=== PATIENT | female | born 1950 | race Caucasian/White ===

== ENCOUNTER → 2017-02-12 | Outpatient (CLI) | payer MEDICARE, MEDICAID ==
[~2017-02-12] MED LIST: DRIS50002 PO; FERR325T3 PO; FOLI1TAB4 PO; IBUP60TA PO; JANU50TA8 PO; LIPI10TA PO; LORA10TA2 PO; MYRB25TA PO; RANI1TAB6 PO; VALS1TAB46 PO; ZONI100C2 PO; ZYRT10TA2 PO; vicodin OR; zyrtec OR
--- NOTE | 2017-02-12 15:04 | REPMRS ---
Patient History The patient states she had a clinical breast exam in Patient is postmenopausal. No known family history of cancer. Took hormonal contraceptives for 2 months. Took unspecified hormones for 10 years. Digital Woman Screen Mammo: February 12, 2017 - Exam #: [id number] Bilateral CC and MLO view(s) were taken. Technologist: Sarita Herr, Technologist Prior study comparison: August 22, 2015, digital woman screen mammo performed at [facility]. August 08, 2013, bilateral bilat screen digital mammo, performed at [facility] ([facility]). FINDINGS: There are scattered fibroglandular densities. There has been no change in the appearance of the mammogram from the prior studies. There is a mild amount of residual fibroglandular tissue which is fairly symmetric. There is no interval development of dominant mass, architectural distortion, or clustered microcalcification suggestive of malignancy. ASSESSMENT: BI-RADS/ACR category 1 mammogram. Negative. Recommendation Routine screening mammogram in 1 year (for women over age 40). This mammogram was interpreted with the aid of an FDA-approved computer-aided dectection system. Electronically Signed By: rOtiz Barron MD 02/12/17 [id number]
== END ==
LOC: M WHC 14:05
PROVIDERS: ATTEND Obstetrics & Gynecology
DX: Z12.31 Encounter for screening mammogram for malignant neoplasm of breast (principal)

== ENCOUNTER 2018-04-07 07:43 | Emergency (ER) | payer MEDICARE, MEDICAID ==
[2018-04-07 08:18] LABS: BASO % 0.3 % (0.0-1.0); EOS # 0.1 10^3/uL (0.0-0.50); EOS % 0.8 % (0.0-3.0); HEMATOCRIT 36.9 % (36.0-47.0); HEMOGLOBIN 11.5 g/dl (12.0-15.5); IMMATURE GRANULOCYTE % 0.6 % (0-3.0); LYMPH # 1.1 10^3/uL (1.5-4.5); LYMPH % 8.7 % (24.0-44.0); MEAN CORPUSCULAR HEMOGLOBIN 31.3 pg (27.0-33.0); MEAN CORPUSCULAR HGB CONC 31.2 g/dl (32.0-36.5); MEAN CORPUSCULAR VOLUME 100.5 fl (80.0-96.0); MONO # 0.5 10^3/uL (0.0-0.8); MONO % 3.7 % (0.0-5.0); NEUTROPHILS # 10.7 10^3/uL (1.8-7.7); NEUTROPHILS % 85.9 % (36.0-66.0); PLATELET COUNT, AUTOMATED 416 10^3/uL (150-450); RED BLOOD COUNT 3.67 10^6/uL (4.00-5.40); RED CELL DISTRIBUTION WIDTH 13.9 % (11.5-14.5); WHITE BLOOD COUNT 12.5 10^3/uL (4.0-10.0)
[2018-04-07 08:37] LABS: INR 0.86; PROTHROMBIN TIME 11.8 SECONDS (12.1-14.4)
[2018-04-07 08:38] LABS: ALBUMIN 3.7 GM/DL (3.2-5.2); ALBUMIN/GLOBULIN RATIO 0.97 (1.00-1.93); ALKALINE PHOSPHATASE 104 U/L (45-117); ALT/SGPT 22 U/L (12-78); ANION GAP 9 MEQ/L (8-16); AST/SGOT 21 U/L (7-37); BILIRUBIN,DIRECT 0.1 MG/DL (0.0-0.2); BILIRUBIN,TOTAL 0.3 MG/DL (0.2-1.0); BLOOD UREA NITROGEN 27 MG/DL (7-18); CALCIUM LEVEL 9.4 MG/DL (8.8-10.2); CARBON DIOXIDE LEVEL 24 MEQ/L (21-32); CHLORIDE LEVEL 106 MEQ/L (98-107); CPK CREATINE PHOSPHOKINASE 61 U/L (26-192); CREATININE FOR GFR 1.19 MG/DL (0.55-1.30); FREE T4 1.19 NG/DL (0.76-1.46); GLOMERULAR FILTRATION RATE 47.9 (>45); GLUCOSE, FASTING 246 MG/DL (70-100); LIPASE 183 U/L (73-393); PARTIAL THROMBOPLASTIN TIME 25.8 SECONDS (25.4-37.6); SODIUM LEVEL 139 MEQ/L (136-145); TOTAL PROTEIN 7.5 GM/DL (6.4-8.2); TROPONIN I < 0.02 NG/ML (< 0.10)
[2018-04-07] MEDS: ONDANSETRON 4MG/2ML VIAL (J2405) IV (08:39)
[2018-04-07] MEDS: NITROGLYCERIN 0.4 MG SUBL TABLET SL ×3 (09:02→09:17)
[2018-04-07] MEDS: ASPIRIN 81 MG CHEW TABLET PO (09:04)
[2018-04-07] MEDS ORDERED: ISOVUE-370 76% 100ML VIAL (Q9967) As Ordered (09:48)
[2018-04-07] MEDS: PANTOPRAZOLE 40MG INJ (PROTONIX) (C9113) IV (10:10)
[2018-04-07] MEDS: GI COCKTAIL 50ML BTL(HYOSCYAMINE/MAALOX/LIDOCAINE VISCOUS)(1:3:1) PO (10:10)
[2018-04-07] MEDS: MORPHINE 4 MG/ML 1ML VIAL/SYRINGE (J2270) IV (13:52)
[2018-04-07 14:58] LABS: CK-MB VALUE MASS < 1.0 NG/ML (<3.6); CPK CREATINE PHOSPHOKINASE 54 U/L (26-192); MB/CK RELATIVE INDEX 1.85 (< OR =4); TROPONIN I < 0.02 NG/ML (< 0.10)
== END 2018-04-07 16:09 | disposition home or self-care (01) ==
LOC: M ED 07:43
DX: R07.9 Chest pain, unspecified (principal); R10.9 Unspecified abdominal pain; R19.09 Other intra-abdominal and pelvic swelling, mass and lump; R06.02 Shortness of breath; E11.9 Type 2 diabetes mellitus without complications; I10 Essential (primary) hypertension; M19.90 Unspecified osteoarthritis, unspecified site; I20.9 Angina pectoris, unspecified; Z79.899 Other long term (current) drug therapy; Z79.84 Long term (current) use of oral hypoglycemic drugs; Z88.2 Allergy status to sulfonamides
CPT/HCPCS: C9113

== ENCOUNTER → 2018-05-24 | Outpatient (CLI) | payer MEDICARE, MEDICAID ==
[~2018-05-24] MED LIST changes: -DRIS50002 PO; +DRIS50003 PO; +FOLI1TAB11 PO; -FOLI1TAB4 PO; +LIDOCAINE 1% MDV 20ML VIAL As Ordered ONE; -LORA10TA2 PO; +LORA10TA3 PO; +PERC5TAB12 PO; +ZYRT10CA5 PO; -ZYRT10TA2 PO
--- NOTE | 2018-05-24 16:10 | REP ---
CT-GUIDED PELVIC MASS BIOPSY The procedure was performed under the direct supervision of Dr. Chavez. The patient has a history of several pelvic masses with a dominant mass in the upper pelvis measuring 10 cm seen on a previous CT scan dated 04/07/2018. The risks and benefits of the procedure were explained to the patient and informed consent was obtained. The mass in the upper pelvis was localized using CT guidance. The skin was prepped and draped in a sterile fashion. 1% lidocaine was used as a local anesthetic. Using CT guidance a 19/20 gauge coaxial needle biopsy system was inserted and advanced into the mass. Six core biopsy samples were obtained and sent to lab. The patient tolerated the procedure well and there were no immediate complications. After the appropriate amount of monitored convalescence the patient was discharged from the department. Reviewed by RADHA Yadav 05/24/2018 03:55 P Electronically Signed by Ramy Chavez MD 05/24/2018 04:01 P
== END ==
LOC: M RADPRO 08:14
PROVIDERS: ATTEND Surgery
DX: D21.4 Benign neoplasm of connective and other soft tissue of abdomen (principal); Z79.899 Other long term (current) drug therapy; Z88.2 Allergy status to sulfonamides

== ENCOUNTER → 2019-03-30 | Outpatient (CLI) | payer MEDICARE, MEDICAID ==
[~2019-03-30] MED LIST changes: +GASTROGRAFIN SOLUTION 30ML (Q9963) As Ordered ONE; +IBUP600T42 PO; -IBUP60TA PO; +ISOVUE-370 76% 100ML VIAL (Q9967) As Ordered ONE; -LIDOCAINE 1% MDV 20ML VIAL As Ordered ONE; +RANI-356 PO; -RANI1TAB6 PO; -VALS1TAB46 PO; +VALS1TAB66 PO
--- NOTE | 2019-03-30 16:01 | REP ---
Clinical: History of malignancy. Comparison: 04/07/2018 Technique: Axial contrast enhanced images of the abdomen and pelvis using oral (per protocol) and 100 ml Isovue 370 intravenous contrast material with images obtained in the portal venous phase and delayed phase of enhancement. Precontrast and arterial phase images obtained of the abdomen along with coronal and sagittal re-formations. Findings: Liver, spleen, pancreas, gallbladder, and bilateral adrenal glands appear normal. Kidneys demonstrate age-related cortical thinning and increased central sinus fat along with bilateral simple cortical and predominantly peripelvic cysts. No perinephric stranding, suspicious renal lesion, or nephrolithiasis appreciated. The enteric system is without obstruction or acute inflammatory process. Normal terminal ileum and appendix identified in the right lower quadrant. Colonic and sigmoid diverticulosis noted without acute diverticulitis. There is a complex enhancing multilobulated mass within the pelvis superior to the bladder which measures approximately 6.5 x 4.2 x 4.4 cm and is increased in size when compared to prior examination. There is a second heterogeneous enhancing mass lesion in the deep left sarahi pelvis which measures approximately 6.6 x 5.4 x 5.8 cm and has considerably increased in size. There is a third lesion more superior within the pelvis which measures approximately 5.8 x 2.5 x 4.9 cm and has considerably decreased in size from prior examination. Further evaluation of the pelvis demonstrates relatively normal appearance to the bladder and evidence for prior hysterectomy. No ascites. No intraperitoneal or retroperitoneal adenopathy. No free air. Abdominal aorta and vasculature appear normal. Musculoskeletal structures are intact. Lung bases are clear. Impression: 1. Three enhancing mass lesions within the pelvis as described above two of which have increased in size while the previously noted largest lesion is somewhat decreased in size. 2. Diverticulosis without acute diverticulitis. 3. Stable simple renal cysts. Electronically Signed by Zeferino Ruiz MD 03/30/2019 03:52 P
== END ==
LOC: M RAD 13:03
PROVIDERS: ATTEND Obstetrics & Gynecology
DX: D48.4 Neoplasm of uncertain behavior of peritoneum (principal); K57.91 Diverticulosis of intestine, part unspecified, without perforation or abscess with bleeding; N28.1 Cyst of kidney, acquired
CPT/HCPCS: 74178; Q9963; Q9967

== ENCOUNTER → 2020-06-14 | Outpatient (CLI) | payer MEDICARE, MEDICAID ==
[~2020-06-14] MED LIST changes: +ACET-683 PO; +CENT1TAB PO; +CURCPOW PO; -GASTROGRAFIN SOLUTION 30ML (Q9963) As Ordered ONE; -ISOVUE-370 76% 100ML VIAL (Q9967) As Ordered ONE; +LETR2.5T2 PO; +MEDR10TA; +METO1TAB7; +MONT10TA10; -RANI-356 PO; +RANI-397 PO; +VITA50005; +ZONI100C17 PO; -ZONI100C2 PO; +ZYRTTAB8 PO
== END ==
LOC: M LABSMTC 10:58
PROVIDERS: ATTEND Anesthesiology
DX: Z01.812 Encounter for preprocedural laboratory examination (principal); Z20.822 Contact with and (suspected) exposure to COVID-19

== ENCOUNTER 2020-06-19 11:37 | Day surgery (SDC) | payer MEDICARE, MEDICAID ==
[~2020-06-19] VITALS: Ht 167.6 cm; Wt 111.6 kg
[~2020-06-19 11:37] MED LIST changes: +LIDOCAINE 1% MDV 20ML VIAL SQ PRN; +LR 1,000 ML IV ONE; +ceFAZolin SOD 1 GM in D5W MINI-BAG PLUS 50 ML IV ONE
--- OUTSIDE RECORDS SUMMARY | 2020-06-19 11:40 | CCD | Continuity of Care Document ---
Author Author Isela EUBANKSCTerrie Organization Unknown Address [address] [place] [address] Phone [phone] Care Team Providers Care Brim Raiser Name Role Phone Pat Richter MD AUTM Unavailable Bernarda Montalvo M.D. AUTM Jose Alejandro Harry M.D. AUTM [phone] CHRISSY ROA AUTM Social History Type Date Description Comments Sex Unknown Medications Active Medications SIG Qnty Indications Ordering Provide r Date Gabapentin 300mg Capsules Zeferino Urias MD Furosemide 20mg Tablets TK 1 T PO D Unknown Losartan Potassium 50mg Tablets TK 1 T PO D Unknown Fluticasone Propionate 50mcg/Act Suspension Use 2 Hundred In Each Nostril D Unknown Famotidine 20mg Tablets TK 1 T PO Twice A Day Unknown Letrozole 2.5mg Tablets Zeferino Urias MD Medroxyprogesterone Acetate 10mg T ablets Take 2 Tablets By Mouth Daily Unknown Vitamin D (Ergocalciferol) 1.25mg (45191 Ut) Capsules Take 1 Capsule By Mouth 1 Time A Week With Food Unknown Omeprazole 20mg Capsules DR Take 1 Capsule By Mouth Every Day Unknown Montelukast Sodium 10mg Tablets Take 1 Tablet By Mouth Every Day Unknown Folic Acid 1mg Tablets Take 1 Tablet By Mouth Every Day Unknown Ferrous Sulfate 324(65Fe) mg Table ts DR Take 1 Tablet By Mouth Every Day Unknown Cetirizine HCL 10mg Tablets Take 1 Tablet By Mouth Once Daily Unknown Atorvastatin Calcium 40mg Tablets Take 1 Tablet By Mouth AT Bedtime Unknown Janumet XR 50-1000mg Tablets ER 24 HR Take 1 Tablet By Mouth Twice Daily Unknown Glimepiride 2mg Tablets Take 1 Tablet By Mouth Every Day Unknown Ketoconazole 2% Cream Apply Externally To Both Feet Twice Daily Unknown Zonisamide 100mg Capsules Take 1 Capsule By Mouth Every Morning And 2 Capsules Every Evening Unknown Metoprolol Succinate ER 50mg Tablets ER 24HR Take 1 Tablet By Mouth Every Day Unknown Myrbetriq 25mg Tablets ER 24HR Pat Richter MD Immunizations CPT Code Status Date Vaccine Lot # [id number] Given 03/06/2010 Flu Injection [id number] Given 01/21/2010 Pneumococcal Vac ([id number]) Vital Signs Date Vital Result Comment 06/13/2020 1:59pm Height 66 inches 5'6" Weight 246.00 lb BMI (Body Mass Index) 39.7 kg/m2 Body Temperature 97.9 F BP Systolic 164 mmHg BP Diastolic 85 mmHg Heart Rate 81 /min O2 % BldC Oximetry 99 % Encounters Type Date Location Provider Dx Diagnosis Office Visit 04/18/2020 9:00a [facility] RUDY Medina I10 Essential (primary) hyperten glory E11.9 Type 2 diabetes mellitus wit hout complications E78.5 Hyperlipidemia, unspecified Assessments Date Code Description Provider 04/18/2020 I10 Essential (primary) hypertension RUDY Sampson 04/18/2020 E11.9 Type 2 diabetes mellitus without complications RUDY Sampson 04/18/2020 E78.5 Hyperlipidemia, unspecified RUDY Jasmine 01/18/2020 I10 Essential (primary) hypertension RUDY Sampson 01/18/2020 E11.9 Type 2 diabetes mellitus without complications RUDY Sampson 01/18/2020 E78.5 Hyperlipidemia, unspecified RUDY Jasmine Plan of Treatment Future Appointment(s):* 06/15/2020 8:45 am - [facility] at [facility] * 07/17/2020 10:30 am - RUDY Sampson at [facility] Referrals Refer to Reason for Referral Status Appt Date [facility] Private Duty Rn PATIENT WITH UMBILIC AL HERNIA. PLEASE EVAL AND TREAT Sent 05/09/[address] [place] [address] [phone]
--- OUTSIDE RECORDS SUMMARY | 2020-06-19 11:40 | CCD | Continuity of Care Document ---
Author Author Isela MILLS MD Organization Unknown Address [address] [facility] [address] [place] [address] Phone [phone] Care Team Providers Care Clean Rice Grader And Reel Tender Name Role Phone Pat Richter M.D. AUTM [phone] Jose Alejandro Harry M.D. AUTM [phone] Problems Description No Information Available Social History Type Date Description Comments Sex Unknown ETOH Use Denies alcohol use Recreational Drug Use Denies Drug Use Tobacco Use Start: Unknown Denies Smoking Allergies, Adverse Reactions, Alerts Active Allergies Reaction Severity Comments Date Sulfa Hives 05/05/2018 Magnesium Oxide Hives 05/09/2020 Nateglinide Hives 05/09/2020 Diltiazem Hives 05/09/2020 Medications Active Medications SIG Qnty Indications Ordering Provide r Date Medroxyprogesterone Acetate 10mg T ablets Take 2 Tablets By Mouth Daily Unknown Letrozole 2.5mg Tablets take 2 tab by mouth daily Unknown Metoprolol Tartrate 25mg Tablets 1 bid Unknown Nexium 40mg Capsules DR 1 by mouth every day Unknown Glimepiride 1mg Tablets 1 qd Unknown Ketoconazole 2% Cream bid To Feet Unknown Myrbetriq 25mg Tablets ER 24HR 1 tab by mouth every day Unknown Tylenol 325mg Tablets 2 by mouth every 4 hours as needed Unknown Multivitamin Adult Tablets 1 by mouth every day Unknown Hydrochlorothiazide 12.5mg Tablets 1 by mouth every day Unknown Vitamin B12 1000mcg Tablets ER 1 by mouth every day Unknown Vitamin D (Ergocalciferol) 70437Sphr Capsules 1 Q Week Unknown Atorvastatin Calcium 10mg Tablets 1 by mouth every night at bedtime Unknown Montelukast Sodium 10mg Tablets 1 by mouth every day Unknown Folic Acid 1mg Tablets 1 by mouth every day Unknown Loratadine 10mg Capsules 1 by mouth every day Unknown Ranitidine HCL 150mg Capsules 1 by mouth twice a day Unknown Zonisamide 100mg Capsules 1 qam And 2 QHS Unknown Janumet 50-1000mg Tablets 1 b id Unknown Ferrous Sulfate 325(65Fe) mg Table ts 1 by mouth every day Unknown Immunizations Description No Information Available Vital Signs Date Vital Result Comment 05/09/2020 10:29am BP Systolic 144 mmHg BP Diastolic 76 mmHg Height 67 inches 5'7" Weight 246.38 lb BMI (Body Mass Index) 38.6 kg/m2 [place] Body Weight 135 lb Weight 111.756 kg BSA (Body Surface Area) 2.21 m2 05/31/2018 10:16am BP Systolic 156 mmHg BP Diastolic 85 mmHg Height 67 inches 5'7" Weight 275.50 lb BMI (Body Mass Index) 43.1 kg/m2 [place] Body Weight 135 lb Weight 124.967 kg BSA (Body Surface Area) 2.32 m2 Results Description No Information Available Procedures Description No Information Available Medical Devices Description No Information Available Encounters Description No Information Available Assessments Description No Information Available Plan of Treatment 05/31/2018 - Alberto Mills JR, MD* R93.3 Abnormal findings on diagnostic imaging of other parts of di* Comments:* At this point there is some abnormality in the pelvis and my concern still is that this is some sort of low-grade sarcoma or a leiomyoma however there is several of these lesions in the pelvis and this would suggest much more of a malignant etiology then a benign etiology. Fortunately there are no significant lymph nodes appreciated no other evident disease appreciated. The patient has a history of pelvic masses and resection and thus it probably is the same etiology of what it was previously and would benefit from referral onto either MEASUREMENT ANALYST oncology or [facility] at this point she does not want travel outside the area but I have convinced her that it is reasonable to see the MEASUREMENT ANALYST oncologist in [place]. At this point she is having some discomfort and pain I will order some pain medication for her until she is seen fortunately she is not completely obstructed is not having any peritoneal signs per se and I do not feel that she needs emergent operative intervention but given her discomfort and pressure and pain I do feel that she will need more urgent care and evaluation. Functional Status Description No Information Available Mental Status Description No Information Available Referrals Description No Information Available
--- OUTSIDE RECORDS SUMMARY | 2020-06-19 11:40 | CCD | Continuity of Care Document ---
Author Author Isela EUBANKSCTerrie Organization Unknown Address [address] [place] [address] Phone [phone] Care Team Providers Care Skylights Assembler Name Role Phone Pat Richter MD AUTM Unavailable Bernarda Montalvo M.D. AUTM Jose Alejandro Harry M.D. AUTM [phone] CHRISSY ROA AUTM [phone] Social History Type Date Description Comments Sex Unknown Medications Active Medications SIG Qnty Indications Ordering Provide r Date Gabapentin 300mg Capsules Zeferino Urias MD Furosemide 20mg Tablets TK 1 T PO D Unknown Losartan Potassium 50mg Tablets TK 1 T PO D Unknown Fluticasone Propionate 50mcg/Act Suspension Use 2 Humphrey In Each Nostril D Unknown Famotidine 20mg Tablets TK 1 T PO Twice A Day Unknown Letrozole 2.5mg Tablets Zeferino Urias MD Medroxyprogesterone Acetate 10mg T ablets Take 2 Tablets By Mouth Daily Unknown Vitamin D (Ergocalciferol) 1.25mg (63749 Ut) Capsules Take 1 Capsule By Mouth [...] CPT Code Status Date Vaccine Lot # [id number] Given 03/06/2010 Flu Injection 61820 Given 01/21/2010 Pneumococcal Vac (J6065) Vital Signs Date Vital Result Comment 06/13/2020 1:59pm Height 66 inches 5'6" Weight 246.00 lb BMI (Body Mass Index) 39.7 kg/m2 Body Temperature 97.9 F BP Systolic 164 mmHg BP Diastolic 85 mmHg Heart Rate 81 /min O2 % BldC Oximetry 99 % Procedures Date Code Description Status 06/13/2020 40149 Echocardiogram, Complete Complet ed 06/13/2020 98948 EKG Completed Encounters Type Date Location Provider Dx Diagnosis Office Visit 06/13/2020 1:45p [facility] I11.9 Hypertensive heart disease without heart failure E11.9 Type 2 diabetes mellitus wit hout complications I34.0 Nonrheumatic mitral (valve) insufficiency I49.49 Other premature depolarizati on Office Visit 04/18/2020 9:00a [facility] RUDY Medina I10 Essential (primary) hyperten glory E11.9 Type 2 diabetes mellitus wit hout complications E78.5 Hyperlipidemia, unspecified Assessments Date Code Description Provider 06/13/2020 I11.9 Hypertensive heart disease witho ut heart failure [facility] 06/13/2020 E11.9 Type 2 diabetes mellitus without complications [facility] 06/13/2020 I34.0 Nonrheumatic mitral (valve) insu fficiency [facility] 06/13/2020 I49.49 Other premature depolarization M tabitha Harry [facility] 04/18/2020 I10 Essential (primary) hypertension RUDY Sampson 04/18/2020 E11.9 Type 2 diabetes mellitus without complications RUDY Sampson 04/18/2020 E78.5 Hyperlipidemia, unspecified RUDY Jasmine 01/18/2020 I10 Essential (primary) hypertension RUDY Sampson 01/18/2020 E11.9 Type 2 diabetes mellitus without complications RUDY Sampson 01/18/2020 E78.5 Hyperlipidemia, unspecified RUDY Jasmine Plan of Treatment Future Appointment(s):* 06/15/2020 8:45 am - [facility] at [facility] * 07/17/2020 10:30 am - RUDY Sampson at [facility] Referrals Refer to Dr Conway for Referral Status Appt Date [facility] Pay Station Collector PATIENT WITH UMBILIC AL HERNIA. PLEASE EVAL AND TREAT Sent 05/09/[address] [phone]
--- OUTSIDE RECORDS SUMMARY | 2020-06-19 11:41 | CCD | Continuity of Care Document ---
Author Author Isela ROA Organization Unknown Address [address] [facility] [address] [place] [address] Phone [phone] Care Team Providers Care Director Of Development And Marketing Name Role Phone Pat Richter MD AUTM Unavailable Bernarda Montalvo M.D. AUTM Jose Alejandro Harry M.D. AUTM [phone] CHRISSY ROA AUTM Social History Type Date Description Comments Sex Unknown Immunizations CPT Code Status Date Vaccine Lot # [id number] Given 03/06/2010 Flu Injection 50228 Given 01/21/2010 Pneumococcal Vac (J6065) Encounters Type Date Location Provider Dx Diagnosis Office Visit 04/18/2020 9:00a [facility] RUDY Medina I10 Essential (primary) [...] RUDY Jasmine Plan of Treatment Future Appointment(s):* 07/17/2020 10:30 am - RUDY Sampson at [facility] Referrals Refer to Reason for Referral Status Appt Date [facility] 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 PLEASE EVAL AND TREAT Sent [address] [phone]
--- OUTSIDE RECORDS SUMMARY | 2020-06-19 11:41 | CCD ---
Author Author [facility] Organization [facility] Address Unknown Phone Unavailable Care Team Providers Care Customer Service Sales Associate Name Role Phone Albert BROWN MD Unavailable Unavailable BROWN, L MARU TURNER Unavailable Unavailable BROWN, L MARU TURNER Unavailable Unavailable BROWN, L MARU TURNER Unavailable Unavailable BROWN, L MARU TURNER Unavailable Unavailable BROWN, L MARU TURNER Unavailable Unavailable BROWN, L MARU TURNER Unavailable Unavailable BROWN, L MARU TURNER Unavailable Unavailable BROWN, L MARU TURNER Unavailable Unavailable BROWN, L MARU TURNER Unavailable Unavailable BROWN, L MARU TURNER Unavailable Unavailable BROWN, L MARU TURNER Unavailable Unavailable BROWN, L MARU TURNER Unavailable Unavailable BROWN, L MARU TURNER Unavailable Unavailable BROWN, L MARU TURNER Unavailable Unavailable BROWN, L MARU TURNER Unavailable Unavailable BROWN, L MARU TURNER Unavailable Unavailable BROWN, L MARU TURNER Unavailable Unavailable BROWN, L MARU TURNER Unavailable Unavailable BROWN, L MARU TURNER Unavailable Unavailable BROWN, L MARU TURNER Unavailable Unavailable BROWN, L MARU TURNER Unavailable Unavailable BROWN, L MARU TURNER Unavailable Unavailable BROWN, L MARU TURNER Unavailable Unavailable BROWN, L MARU TURNER Unavailable Unavailable BROWN, L MARU TURNER Unavailable Unavailable BROWN, L MRAU TURNER Unavailable Unavailable BROWN, L MARU TURNER Unavailable Unavailable BROWN, L MARU TURNER Unavailable Unavailable BROWN, L MARU TURNER Unavailable Unavailable BROWN, L MARU TURNER Unavailable Unavailable BROWN, L MARU TURNER Unavailable Unavailable BROWN, L MARU TURNER Unavailable Unavailable BROWN, L MARU TURNER Unavailable Unavailable BROWN, L MARU MD Unavailable Unavailable Albert BROWN MD Unavailable Unavailable Albert BROWN MD Unavailable Unavailable Albert BROWN MD Unavailable Unavailable Albert BROWN MD Unavailable Unavailable Albert BROWN MD Unavailable Unavailable Albert BROWN MD Unavailable Unavailable Albert BROWN MD Unavailable Unavailable Albert BROWN MD Unavailable Unavailable WILLIAM, MAQBOOL DANA MD Unavailable Unavailable WILLIAM, MAQBOOL DANA MD Unavailable Unavailable WILLIAM, MAQBOOL DANA MD Unavailable Unavailable WILLIAM, MAQBOOL DANA MD Unavailable Unavailable WILLIAM, MAQBOOL DANA MD Unavailable Unavailable WILLIAM, MAQBOOL DANA MD Unavailable Unavailable WILLIAM, MAQBOOL DANA MD Unavailable Unavailable WILLIAM, MAQBOOL DANA MD Unavailable Unavailable WILLIAM, MAQBOOL DANA MD Unavailable Unavailable WILLIAM, MAQBOOL DANA MD Unavailable Unavailable WILLIAM, MAQBOOL DANA MD Unavailable Unavailable WILLIAM, MAQBOOL DANA MD Unavailable Unavailable WILLIAM, MAQBOOL DANA MD Unavailable Unavailable WILLIAM, MAQBOOL DANA MD Unavailable Unavailable WILLIAM, MAQBOOL DANA MD Unavailable Unavailable WILLIAM, MAQBOOL DANA MD Unavailable Unavailable WILLIAM, MAQBOOL DANA MD Unavailable Unavailable WILLIAM, MAQBOOL DANA MD Unavailable Unavailable WILLIAM, MAQBOOL DANA MD Unavailable Unavailable WILLIAM, MAQBOOL DANA MD Unavailable Unavailable WILLIAM, MAQBOOL DANA MD Unavailable Unavailable WILLIAM, MAQBOOL DANA MD Unavailable Unavailable WILLIAM, MAQBOOL DANA MD Unavailable Unavailable WILLIAM, MAQBOOL DANA MD Unavailable Unavailable WILLIAM, MAQBOOL DANA MD Unavailable Unavailable WILLIAM, MAQBOOL DANA MD Unavailable Unavailable WILLIAM, MAQBOOL DANA MD Unavailable Unavailable WILLIAM, MAQBOOL DANA MD Unavailable Unavailable WILLIAM, MAQBOOL DANA MD Unavailable Unavailable WILLIAM, MAQBOOL DANA MD Unavailable Unavailable WILLIAM, MAQBOOL DANA MD Unavailable Unavailable WILLIAM, MAQBOOL DANA MD Unavailable Unavailable WILLIAM, MAQBOOL DANA MD Unavailable Unavailable WILLIAM, MAQBOOL DANA MD Unavailable Unavailable WILLIAM, MAQBOOL DANA MD Unavailable Unavailable WILLIAM, MAQBOOL DANA MD Unavailable Unavailable WILLIAM, MAQBOOL DANA MD Unavailable Unavailable WILLIAM, MAQBOOL DANA MD Unavailable Unavailable WILLIAM, MAQBOOL DANA MD Unavailable Unavailable WILLIAM, MAQBOOL DANA MD Unavailable Unavailable WILLIAM, MAQBOOL DANA MD Unavailable Unavailable WILLIAM, MAQBOOL DANA MD Unavailable Unavailable WILLIAM, MAQBOOL DANA MD Unavailable Unavailable WILLIAM, MAQBOOL DANA MD Unavailable Unavailable WILLIAM, MAQBOOL DANA MD Unavailable Unavailable WILLIAM, MAQBOOL DANA MD Unavailable Unavailable WILLIAM, MAQBOOL DANA MD Unavailable Unavailable WILLIAM, MAQBOOL DANA MD Unavailable Unavailable WILLIAM, MAQBOOL DANA MD Unavailable Unavailable WILLIAM, MAQBOOL DANA MD Unavailable Unavailable WILLIAM, MAQBOOL DANA MD Unavailable Unavailable WILLIAM, MAQBOOL DANA MD Unavailable Unavailable WILLIAM, MAQBOOL DANA MD Unavailable Unavailable WILLIAM, MAQBOOL DANA MD Unavailable Unavailable WILLIAM, MAQBOOL DANA MD Unavailable Unavailable WILLIAM, MAQBOOL DANA MD Unavailable Unavailable WILLIAM, MAQBOOL DANA MD Unavailable Unavailable WILLIAM, MAQBOOL DANA MD Unavailable Unavailable WILLIAM, MAQBOOL DANA MD Unavailable Unavailable WILLIAM, MAQBOOL DANA MD Unavailable Unavailable WILLIAM, MAQBOOL DANA MD Unavailable Unavailable WILLIAM, MAQBOOL DANA MD Unavailable Unavailable WILLIAM, MAQBOOL DANA MD Unavailable Unavailable WILLIAM, MAQBOOL DANA MD Unavailable Unavailable WILLIAM, MAQBOOL DANA MD Unavailable Unavailable WILLIAM, MAQBOOL DANA MD Unavailable Unavailable WILLIAM, MAQBOOL DANA MD Unavailable Unavailable WILLIAM, MAQBOOL DANA MD Unavailable Unavailable WILLIAM, MAQBOOL DANA MD Unavailable Unavailable WILLIAM, MAQBOOL DANA MD Unavailable Unavailable WILLIAM, MAQBOOL DANA MD Unavailable Unavailable PRINCE HARRY MD Unavailable Unavailable PRINCE HARRY MD Unavailable Unavailable PRINCE HARRY MD Unavailable Unavailable MATTIShreya PHIPPS MD Unavailable Unavailable MATTIShreya PHIPPS MD Unavailable Unavailable Shreya CHINO MD Unavailable Unavailable Shreya CHINO MD Unavailable Unavailable Shreya CHINO MD Unavailable Unavailable Shreya CHINO MD Unavailable Unavailable Shreya CHINO MD Unavailable Unavailable Shreya CHINO MD Unavailable Unavailable MATTIShreya PHIPPS MD Unavailable Unavailable MATTIShreya PHIPPS MD Unavailable Unavailable Shreya CHINO MD Unavailable Unavailable Shreya CHINO MD Unavailable Unavailable MATTIShreya PHIPPS MD Unavailable Unavailable Shreya CHINO MD Unavailable Unavailable Shreya CHINO MD Unavailable Unavailable Shreya CHINO MD Unavailable Unavailable Shreya CHINO MD Unavailable Unavailable Shreya CHINO MD Unavailable Unavailable Shreya CHINO MD Unavailable Unavailable Shreya CHINO MD Unavailable Unavailable Shreya CHINO MD Unavailable Unavailable Shreya CHINO MD Unavailable Unavailable Shreya CHINO MD Unavailable Unavailable Shreya CHINO MD Unavailable Unavailable Shreya CHINO MD Unavailable Unavailable Shreya CHINO MD Unavailable Unavailable Shreya CHINO MD Unavailable Unavailable Shreya CHINO MD Unavailable Unavailable Shreya CHINO MD Unavailable Unavailable Shreya CHINO MD Unavailable Unavailable Shreya CHINO MD Unavailable Unavailable Shreya CHINO MD Unavailable Unavailable Shreya CHINO MD Unavailable Unavailable Shreya CHINO MD Unavailable Unavailable Shreya CHINO MD Unavailable Unavailable Shreya CHINO MD Unavailable Unavailable Shreya CHINO MD Unavailable Unavailable Shreya CHINO MD Unavailable Unavailable Shreya CHINO MD Unavailable Unavailable Shreya CHINO MD Unavailable Unavailable Shreya CHINO MD Unavailable Unavailable Shreya CHINO MD Unavailable Unavailable Shreya CHINO MD Unavailable Unavailable Shreya CHINO MD Unavailable Unavailable Shreya CHINO MD Unavailable Unavailable Shreya CHINO MD Unavailable Unavailable Shreya CHINO MD Unavailable Unavailable Shreya CHINO MD Unavailable Unavailable Shreya CHINO MD Unavailable Unavailable Shreya CHINO MD Unavailable Unavailable Shreya CHINO MD Unavailable Unavailable Shreya CHINO MD Unavailable Unavailable Shreya CHINO MD Unavailable Unavailable Shreya CHINO MD Unavailable Unavailable Shreya CHINO MD Unavailable Unavailable Shreya CHINO MD Unavailable Unavailable Shreya CHINO MD Unavailable Unavailable Shreya CHINO MD Unavailable Unavailable Shreya CHINO MD Unavailable Unavailable Shreya CHINO MD Unavailable Unavailable Shreya CHINO MD Unavailable Unavailable Shreya CHINO MD Unavailable Unavailable Shreya CHINO MD Unavailable Unavailable Shreya CHINO MD Unavailable Unavailable Shreya CHINO MD Unavailable Unavailable Shreya CHINO MD Unavailable Unavailable Shreya CHINO MD Unavailable Unavailable Shreya CHINO MD Unavailable Unavailable Shreya CHINO MD Unavailable Unavailable MATTIShreya PHIPPS MD Unavailable Unavailable MATTIShreya PHIPPS MD Unavailable Unavailable MATTIShreya PHIPPS MD Unavailable Unavailable MATTIShreya PHIPPS MD Unavailable Unavailable Shreya CHINO MD Unavailable Unavailable Shreya CHINO MD Unavailable Unavailable Shreya CHINO MD Unavailable Unavailable Shreya CHINO MD Unavailable Unavailable Shreya CHINO MD Unavailable Unavailable MATTIShreya PHIPPS MD Unavailable Unavailable Shreya CHINO MD Unavailable Unavailable Shreya CHINO MD Unavailable Unavailable Shreya CHINO MD Unavailable Unavailable Shreya CHINO MD Unavailable Unavailable Shreya CHION MD Unavailable Unavailable Shreya CHINO MD Unavailable Unavailable Shreya CHINO MD Unavailable Unavailable Shreya CHINO MD Unavailable Unavailable Shreya CHINO MD Unavailable Unavailable Shreya CHINO MD Unavailable Unavailable Shreya CHINO MD Unavailable Unavailable Shreya CHINO MD Unavailable Unavailable Shreya CHINO MD Unavailable Unavailable Shreya CHINO MD Unavailable Unavailable Shreya CHINO MD Unavailable Unavailable Shreya CHINO MD Unavailable Unavailable Shreya CHINO MD Unavailable Unavailable Shreya CHINO MD Unavailable Unavailable Shreya CHINO MD Unavailable Unavailable Shreya CHINO MD Unavailable Unavailable Shreya CHINO MD Unavailable Unavailable Shreya CHINO MD Unavailable Unavailable Shreya CHINO MD Unavailable Unavailable Shreya CHINO MD Unavailable Unavailable Shreya CHINO MD Unavailable Unavailable Shreya CHINO MD Unavailable Unavailable Shreya CHINO MD Unavailable Unavailable Shreya CHINO MD Unavailable Unavailable Shreya CHINO MD Unavailable Unavailable Shreya CHINO MD Unavailable Unavailable Shreya CHINO MD Unavailable Unavailable Shreya CHINO MD Unavailable Unavailable Shreya CHINO MD Unavailable Unavailable TONTARSKI, G CHRISSY PA Unavailable Unavailable TONTARSKI, G CHRISSY PA Unavailable Unavailable TONTARSKI, G CHRISSY PA Unavailable Unavailable TONTARSKI, G CHRISSY PA Unavailable Unavailable TONTARSKI, G CHRISSY PA Unavailable Unavailable TONTARSMAIRA, G CHRISSY PA Unavailable Unavailable TONTARSMAIRA, G CHRISSY PA Unavailable Unavailable TONTARSMAIRA, G CHRISSY PA Unavailable Unavailable TONTARSMAIRA, G CHRISSY PA Unavailable Unavailable TONTARSMAIRA, G CHRISSY PA Unavailable Unavailable TONTARSMAIRA, G CHRISSY PA Unavailable Unavailable TONTARSMAIRA, G CHRISSY PA Unavailable Unavailable TONTARSMAIRA, G CHRISSY PA Unavailable Unavailable TONTARSMAIRA, G CHRISSY PA Unavailable Unavailable TONTARSMAIRA, G CHRISSY PA Unavailable Unavailable TONTARSMAIRA, G CHRISSY PA Unavailable Unavailable TONTARSMAIRA, G CHRISSY PA Unavailable Unavailable TONTARSMAIRA, G CHRISSY PA Unavailable Unavailable TONTARSMAIRA, G CHRISSY PA Unavailable Unavailable TONTARSMAIRA, G CHRISSY PA Unavailable Unavailable TONTARSMAIRA, G CHRISSY PA Unavailable Unavailable TONTARSMAIRA, G CHRISSY PA Unavailable Unavailable TONTARSMAIRA, G CHRISSY PA Unavailable Unavailable TONTARSMAIRA, G CHRISSY PA Unavailable Unavailable TONTARSMAIRA, G CHRISSY PA Unavailable Unavailable TONTARSMAIRA, G CHRISSY PA Unavailable Unavailable TONTARSMAIRA, G CHRISSY PA Unavailable Unavailable TONTARSMAIRA, G CHRISSY PA Unavailable Unavailable TONTARSMAIRA, G CHRISSY PA Unavailable Unavailable TONTARSMAIRA, G CHRISSY PA Unavailable Unavailable TONTARSMAIRA, G CHRISSY PA Unavailable Unavailable TONTARSMAIRA, G CHRISSY PA Unavailable Unavailable TONTARSMAIRA, G CHRISSY PA Unavailable Unavailable TONTARSMAIRA, G CHRISSY PA Unavailable Unavailable TONTARSMAIRA, G CHRISSY PA Unavailable Unavailable TONTARSMAIRA, G CHRISSY PA Unavailable Unavailable TONTARSMAIRA, G CHRISSY PA Unavailable Unavailable TONTARSMAIRA, G CHRISSY PA Unavailable Unavailable TONTARSMAIRA, G CHRISSY PA Unavailable Unavailable TONTARSMAIRA, G CHRISSY PA Unavailable Unavailable TONTARSMAIRA, G CHRISSY PA Unavailable Unavailable TONTARSMARIA, G CHRISSY PA Unavailable Unavailable TONTARSMAIRA, G CHRISSY PA Unavailable Unavailable TONTARSMAIRA, G CHRISSY PA Unavailable Unavailable TONTARSMAIRA, G CHRISSY PA Unavailable Unavailable TONTARSMAIRA, G CHRISSY PA Unavailable Unavailable TONTARSKI, G CHRISSY PA Unavailable Unavailable TONTARSKI, G CHRISSY PA Unavailable Unavailable WILLIAM, MAQBOOL DANA MD Unavailable Unavailable WILLIAM, MAQBOOL DANA MD Unavailable Unavailable WILLIAM, MAQBOOL DANA MD Unavailable Unavailable WILLIAM, MAQBOOL DANA MD Unavailable Unavailable WILLIAM, MAQBOOL DANA MD Unavailable Unavailable WILLIAM, MAQBOOL DANA MD Unavailable Unavailable WILLIAM, MAQBOOL DANA MD Unavailable Unavailable WILLIAM, MAQBOOL DANA MD Unavailable Unavailable WILLIAM, MAQBOOL DANA MD Unavailable Unavailable WILLIAM, MAQBOOL DANA MD Unavailable Unavailable WILLIAM, MAQBOOL DANA MD Unavailable Unavailable WILLIAM, MAQBOOL DANA MD Unavailable Unavailable WILLIAM, MAQBOOL DANA MD Unavailable Unavailable WILLIAM, MAQBOOL DANA MD Unavailable Unavailable WILLIAM, MAQBOOL DANA MD Unavailable Unavailable WILLIAM, MAQBOOL DANA MD Unavailable Unavailable WILLIAM, MAQBOOL DANA MD Unavailable Unavailable WILLIAM, MAQBOOL DANA MD Unavailable Unavailable WILLIAM, MAQBOOL DANA MD Unavailable Unavailable WILLIAM, MAQBOOL DANA MD Unavailable Unavailable WILLIAM, MAQBOOL DANA MD Unavailable Unavailable WILLIAM, MAQBOOL DANA MD Unavailable Unavailable WILLIAM, MAQBOOL DANA MD Unavailable Unavailable WILLIAM, MAQBOOL DANA MD Unavailable Unavailable WILLIAM, MAQBOOL DANA MD Unavailable Unavailable WILLIAM, MAQBOOL DANA MD Unavailable Unavailable WILLIAM, MAQBOOL DANA MD Unavailable Unavailable WILLIAM, MAQBOOL DANA MD Unavailable Unavailable WILLIAM, MAQBOOL DANA MD Unavailable Unavailable WILLIAM, MAQBOOL DANA MD Unavailable Unavailable WILLIAM, MAQBOOL DANA MD Unavailable Unavailable WILLIAM, MAQBOOL DANA MD Unavailable Unavailable WILLIAM, MAQBOOL DANA MD Unavailable Unavailable WILLIAM, MAQBOOL DANA MD Unavailable Unavailable WILLIAM, MAQBOOL DANA MD Unavailable Unavailable WILLIAM, MAQBOOL DANA MD Unavailable Unavailable WILLIAM, MAQBOOL DANA MD Unavailable Unavailable WILLIAM, MAQBOOL DANA MD Unavailable Unavailable WILLIAM, MAQBOOL DANA MD Unavailable Unavailable WILLIAM, MAQBOOL DANA MD Unavailable Unavailable WILLIAM, MAQBOOL DANA MD Unavailable Unavailable WILLIAM, MAQBOOL DANA MD Unavailable Unavailable WILLIAM, MAQBOOL DANA MD Unavailable Unavailable WILLIAM, MAQBOOL DANA MD Unavailable Unavailable WILLIAM, MAQBOOL DANA MD Unavailable Unavailable WILLIAM, MAQBOOL DANA MD Unavailable Unavailable WILLIAM, MAQBOOL DANA MD Unavailable Unavailable WILLIAM, MAQBOOL DANA MD Unavailable Unavailable WILLIAM, MAQBOOL DANA MD Unavailable Unavailable WILLIAM, MAQBOOL DANA MD Unavailable Unavailable WILLIAM, MAQBOOL DAAN MD Unavailable Unavailable WILLIAM, MAQBOOL DANA MD Unavailable Unavailable WILLIAM, MAQBOOL DANA MD Unavailable Unavailable WILLIAM, MAQBOOL DANA MD Unavailable Unavailable WILLIAM, MAQBOOL DANA MD Unavailable Unavailable WILLIAM, MAQBOOL DANA MD Unavailable Unavailable WILLIAM, MAQBOOL DANA MD Unavailable Unavailable WILLIAM, MAQBOOL DANA MD Unavailable Unavailable WILLIAM, MAQBOOL DANA MD Unavailable Unavailable WILLIAM, MAQBOOL DANA MD Unavailable Unavailable WILLIAM, MAQBOOL DANA MD Unavailable Unavailable WILLIAM, MAQBOOL DANA MD Unavailable Unavailable WILLIAM, MAQBOOL DANA MD Unavailable Unavailable WILLIAM, MAQBOOL DANA MD Unavailable Unavailable WILLIAM, MAQBOOL DANA MD Unavailable Unavailable WILLIAM, MAQBOOL DANA MD Unavailable Unavailable WILLIAM, MAQBOOL DANA MD Unavailable Unavailable WILLIAM, MAQBOOL DANA MD Unavailable Unavailable WILLIAM, MAQBOOL DANA MD Unavailable Unavailable WILLIAM, MAQBOOL DANA MD Unavailable Unavailable WILLIAM, MAQBOOL DANA MD Unavailable Unavailable WILLIAM, MAQBOOL DANA MD Unavailable Unavailable WILLIAM, MAQBOOL DANA MD Unavailable Unavailable WILLIAM, MAQBOOL DANA MD Unavailable Unavailable TONLADANRSKI G CHRISSY PA Unavailable Unavailable TONTARSKI, G CHRISSY PA Unavailable Unavailable TONTARSMAIRA, G CHRISSY PA Unavailable Unavailable TONTARSMAIRA, G CHRISSY PA Unavailable Unavailable TONTARSMAIRA, G CHRISSY PA Unavailable Unavailable TONTARSMAIRA, G CHRISSY PA Unavailable Unavailable TONTARSMAIRA, G CHRISSY PA Unavailable Unavailable TONTARSMAIRA, G CHRISSY PA Unavailable Unavailable TONTARSMAIRA, G CHRISSY PA Unavailable Unavailable TONTARSMAIRA, G CHRISSY PA Unavailable Unavailable TONTARSMAIRA, G CHRISSY PA Unavailable Unavailable TONTARSMAIRA, G CHRISSY PA Unavailable Unavailable TONTARSMAIRA, G CHRISSY PA Unavailable Unavailable TONTARSMAIRA, G CHRISSY PA Unavailable Unavailable TONTARSMAIRA, G CHRISSY PA Unavailable Unavailable TONTARSMAIRA, G CHRISSY PA Unavailable Unavailable TONTARSMAIRA, G CHRISSY PA Unavailable Unavailable TONTARSMAIRA, G CHRISSY PA Unavailable Unavailable TONTARSMAIRA, G CHRISSY PA Unavailable Unavailable TONTARSMAIRA, G CHRISSY PA Unavailable Unavailable TONTARSMAIRA, G CHRISSY PA Unavailable Unavailable TONTARSMAIRA, G CHRISSY PA Unavailable Unavailable TONTARSMAIRA, G CHRISSY PA Unavailable Unavailable TONTARSMAIRA, G CHRISSY PA Unavailable Unavailable TONTARSMAIRA, G CHRISSY PA Unavailable Unavailable TONTARSMAIRA, G CHRISSY PA Unavailable Unavailable TONTARSMAIRA, G CHRISSY PA Unavailable Unavailable TONTARSMAIRA, G CHRISSY PA Unavailable Unavailable TONTARSMAIRA, G CHRISSY PA Unavailable Unavailable TONTARSMAIRA, G CHRISSY PA Unavailable Unavailable TONTARSMAIRA, G CHRISSY PA Unavailable Unavailable TONTARSMAIRA, G CHRISSY PA Unavailable Unavailable TONTARSMAIRA, G CHRISSY PA Unavailable Unavailable TONTARSMAIRA, G CHRISSY PA Unavailable Unavailable TONTARSMAIRA, G CHRISSY PA Unavailable Unavailable TONTARSMAIRA, G CHRISSY PA Unavailable Unavailable TONTARSMAIRA, G CHRISSY PA Unavailable Unavailable TONTARSMAIRA, G CHRISSY PA Unavailable Unavailable TONTARSMAIRA, G CHRISSY PA Unavailable Unavailable TONTARSMAIRA, G CHRISSY PA Unavailable Unavailable TONTARSMAIRA, G CHRISSY PA Unavailable Unavailable TONTARSMAIRA, G CHRISSY PA Unavailable Unavailable TONTARSMAIRA, G CHRISSY PA Unavailable Unavailable TONTARSMAIRA, G CHRISSY PA Unavailable Unavailable TONTARSKISierra CHRISSY PA Unavailable Unavailable TONTARSKISierra CHRISSY PA Unavailable Unavailable TONTARSKI, Sierra CHRISSY PA Unavailable Unavailable TONTARSKI, G CHRISSY PA Unavailable Unavailable Re-disclosure Warning The records that you are about to access may contain information from federally-assisted alcohol or drug abuse programs. If such information is present, then the following federally mandated warning applies: This information has been disclosed to you from records protected by federal confidentiality rules (42 CFR part 2). The federal rules prohibit you from making any further disclosure of this information unless further disclosure is expressly permitted by the written consent of the person to whom it pertains or as otherwise permitted by 42 CFR part 2. A general authorization for the release of medical or other information is NOT sufficient for this purpose. The Federal rules restrict any use of the information to criminally investigate or prosecute any alcohol or drug abuse patient.The records that you are about to access may contain highly sensitive health information, the redisclosure of which is protected by Article 27-F of the [facility] Public Health law. If you continue you may have access to information: Regarding HIV / AIDS; Provided by facilities licensed or operated by the [facility] Office of Mental Health; or Provided by the [facility] Office for People With Developmental Disabilities. If such information is present, then the following [facility] mandated warning applies: This information has been disclosed to you from confidential records which are protected by state law. State law prohibits you from making any further disclosure of this information without the specific written consent of the person to whom it pertains, or as otherwise permitted by law. Any unauthorized further disclosure in violation of state law may result in a fine or halfway sentence or both. A general authorization for the release of medical or other information is NOT sufficient authorization for further disc losure. Family History Family Member Name Family Member Gender Family Member Status Date o f Status Description Data Source(s) Unknown Unknown Problem [facility] ([facility] [employer] [employer]) Unknown Male Problem [facility] ([facility] Unknown Female Problem [facility] ([facility]) Unknown Female Problem [facility] ([facility]) Unknown Female Problem [facility] ([facility]) Encounters Encounter Providers Location Date Indications Data Source(s ) Outpatient Attender: DANA HARRY MD [facility] 06/13 12:45:00 PM EST [facility] (Dana Harry MD) Outpatient Attender: CHRISSY GRANT [facility] 04/18/2020 08:00:00 AM EST [facility] (Dana Harry MD) Outpatient Referrer: LORI CHINO MD 09/12/2019 08:44:00 A M EDT [facility] Outpatient Referrer: LORI CHINO MD 09/12/2019 08:44:00 A M EDT [facility] Outpatient Referrer: LORI CHINO MD 09/01/2019 11:21:00 A M EDT [facility] Outpatient Referrer: MARU BROWN MD 09/01/2019 11:19:00 AM EDT [facility] Outpatient Attender: DANA HARRY MDConsultant: CHRISSY GRANT 06/16/2019 12:16:00 PM EST - 06/16/2019 01:16:00 PM [facility] Outpatient Attender: DANA HARRY MDConsultant: CHRISSY GRANT 06/08/2019 12:23:00 PM EST - 06/08/2019 01:23:00 PM [facility] Insurance Providers Payer name Policy type / Coverage type Policy ID Covered democrat ID Covered democrat's relationship to cool Policy Cool Plan Information EMEDNY [id number] SP [id number] MEDICARE [id number] SP [id number] MEDICARE C [id number] S [id number] [id number] MEDICAID M [id number] MEDICARE PART A -O/P [id number] 18 [id number] MEDICAID -O/P [id number] MEDICAID [id number] SP [id number] MEDICAID [id number] SP [id number] MEDICARE [id number] SP [id number] MEDICARE PART A -O/P [id number] 18 [id number] [place] [id number] Self [id number] [place] [id number] Self [id number] [place] [id number] Self [id number] [place] [id number] Self [id number] [place] [id number] Self [id number] [place] [id number] Self [id number] MEDICARE A [id number] Self [id number] [id number] MEDICAID M [id number] Self [id number] MEDICARE A [id number] Self [id number] A MEDICARE C [id number] S [id number] A MEDICAID [id number] SP [id number] Medicare Dme Supplies Medigap Part B [id number] Self [id number] [place] [id number] Self [id number] [place]ig[place] [id number] Self [id number] Medicare Dme Supplies Medigap Part B [id number] Self [id number] [place] [id number] Self [id number] Medicare Dme Supplies Medigap Part B [id number] Self [id number] [place] [id number] Self [id number] Medicare Dme Supplies Medigap Part B [id number] Self [id number] [place] [id number] Self [id number] Medicare Dme Supplies Medigap Part B [id number] Self [id number] [place] [id number] Self [id number] [place] -CLINIC [id number] MEDIC[place] PART A -CLINIC [id number] 18 [id number] [place] Part B Self Medicare D[place] Supplies [place] B [place] Medicare Primary Self MEDICAID [id number] Problems, Conditions, and Diagnoses Code Display Name Description Problem Type Effective Dates Data Source(s) I2699 Other pulmonary embolism without acute c or pulmonale Other pulmonary embolism without acute cor pulmonale Diagnosis 06/16/2019 12:16:00 PM [facility] R932 Abnormal findings on diagnostic imaging of liver and biliary tract Abnormal findings on diagnostic imaging of liver and biliary tract Diagnosis 06/08/2019 12:23:00 PM [facility] E8342 Hypomagnesemia Hypomagnesemia Diagnosis 06/08/2019 12:23: 00 PM [facility] N390 Urinary tract infection, site not specif ied Urinary tract infection, site not specified Diagnosis 06/08/2019 12:23:00 PM [facility] E039 Hypothyroidism, unspecified Hypothyroidism, unspecifie d Diagnosis 06/08/2019 12:23:00 PM [facility] D649 Anemia, unspecified Anemia, unspecified Diagnosis 0 06/08/2019 12:23:00 PM [facility] E119 Type 2 diabetes mellitus without complic ations Type 2 diabetes mellitus without complications Diagnosis 06/08/2019 12:23:00 PM [facility] I509 Heart failure, unspecified Heart failure, unspecified Diagnosis 06/08/2019 12:23:00 PM [facility] Surgeries/Procedures Procedure Description Date Indications Data Source(s) ECG ROUTINE ECG W/LEAST 12 LDS W/I&R 06/13/2020 12:00: 00 AM EST [facility] (Dana Harry MD) ECHO TTHRC R-T 2D W/WOM-MODE COMPL SPEC&COLR DOP 06/13 12:00:00 AM EST [facility] (Dana Harry MD) PARING/CUTTING BENIGN HYPERKERATOTIC LESION 2-4 2018 12:00:00 AM EST [facility] ([facility]) DEBRIDEMENT NAIL ANY METHOD 6/> 04/21/2019 12:00:00 AM EST [facility] ([facility]) Results ID Date Data Source [id number] 06/14/2020 11:00:00 AM EST [facility] Name Value Range Interpretation Code Description Data Solange rce(s) Supporting Document(s) SARS coronavirus 2 RNA Not Detected [facility] [place] This lab was ordered by [facility] and reported by [facility]. ID Date Data Source [id number] 03/01/2020 12:00:00 AM EST [facility] Lori Chino MD Patient Name: LOREE BUTT Date of : 1950[address] Date of Exam: 03/01/2020GIUSEPPE [place] [id number]#: Fax: [phone] EXAM: US TRANSVAGINAL NON-OBCLINICAL INFORMATION: Pelvic pain.Transvaginal pelvic ultrasound was ordered and performed. The lack oftransvesical images decreases the sensitivity of the exam.The latest prior for comparison 03/07/2019 reviewed.The patient is status post [facility] BSO.On the right, there is a 6 x 4.3 x 4.6 cm sized mass. This previouslymeasured 4.3 x 3.9 x 4.1 cm. On the left, there is a 6.3 x 5.4 x 6.6 cmsized mass. This previously measured 5.9 x 4.8 x 5.4 cm. Inferiorly andsomewhat posteriorly, there is a mass which measures 4.5 x 2.4 x 3 cm.This previously measured 2.5 x 1.8 x 1.4 cm. In the upper vaginal vaultregion, there is a 1.1 x 1.3 x 1.1 cm sized mass. This previously measured1.8 x 1.3 x 1.1 cm.There is no evidence of free fluid.IMPRESSION:Pelvic masses as described above.Accredited by the [employer] in GynecologicalUltrasound.IAIN Choi/Tex you for referring MILO BUTT to our office. Electronically Signed - TAL DIGGS DO 03/01/20 17:24 Name Value Range Interpretation Code Description Data Solange rce(s) Supporting Document(s) ID Date Data Source [id number] 09/12/2019 12:00:00 AM EDT [facility] Lori Chino MD Patient Name: DAQUAN,LOREE Hart Date of : 1950[address] Date of Exam: 09/12/2019GIUSEPPE [place] [id number]#: Fax: [phone] EXAM: US PELVIC COMPLETECLINICAL INFORMATION: Followup pelvic mass.The latest prior examination for comparison is 03/07/2019 which showed a4.6 x 3.6 x 5.3 cm sized right adnexal mass and a 5.7 x 4.3 x 5.3 cm sizedleft ad nexal mass and a 2.6 x 1.9 x 3.2 cm sized posteroinferior mass, allessentially unchanged. A 1.5 x 1.3 x 1.7 cm solid nodule in the vaginalvault.Transvaginal imaging only.Today's exam is completely unchanged from the prior exam with oneexception. The inferior posterior 3.2 x 1.9 x 2.6 cm sized mass seen onthe latest prior examination now measures 2.5 x 1.8 x 1.4 cm. There are noother changes.Accredited by the [employer] in GynecologicalUltrasound.IAIN Choi/Tex you for referring MILO BUTT to our office. Electronically Signed - TAL DIGGS DO 09/12/19 16:55 Name Value Range Interpretation Code Description Data Solange rce(s) Supporting Document(s) ID Date Data Source [id number] 09/12/2019 12:00:00 AM EDT [facility] Chino MD Patient Name: LOREE BUTT Date of : 1950[address] Date of Exam: 09/12/2019SyraGIUSEPPE [place] [id number]#: Fax: [phone] EXAM: US PELVIC COMPLETECLINICAL INFORMATION: Followup pelvic mass.The latest prior examination for comparison is 03/07/2019 which showed a4.6 x 3.6 x 5.3 cm sized right adnexal mass and a 5.7 x 4.3 x 5.3 cm sizedleft ad nexal mass and a 2.6 x 1.9 x 3.2 cm sized posteroinferior mass, allessentially unchanged. A 1.5 x 1.3 x 1.7 cm solid nodule in the vaginalvault.Transvaginal imaging only.Today's exam is completely unchanged from the prior exam with oneexception. The inferior posterior 3.2 x 1.9 x 2.6 cm sized mass seen onthe latest prior examination now measures 2.5 x 1.8 x 1.4 cm. There are noother changes.Accredited by the [employer] in GynecologicalUltrasound.IAIN Choi/Tex you for referring MILO BUTT to our office. Electronically Signed - TAL DIGGS DO 09/12/19 16:55 Name Value Range Interpretation Code Description Data Solange rce(s) Supporting Document(s) ID Date Data Source [id number] 06/17/2019 10:36:00 AM EST [facility] [address] [place] [address] PHONE: [phone] FAX: [phone] Name .................. : DAQUAN Peace Acct Number.................. : [id number] ROOM. ................. : MR Number ................... : [id number] Stay type ............. : O/P Discharge Date......... ... : 06/16/19 Admit Date ....... .. : 06/16/19 Admit Phys .................... : WILLIAM AHSAN Date of ....... : 1950 Family Phys ................... : [employer] Phone .................. : [phone] Age ................................ : 69 Film# .................. .:[id number] Sex ................................. : F Unsigned transcriptions are preliminary reports and do not represent a medical or legal document CT CTA CHEST NON-CORONARY W C 10407 COMPLETE:06/16/19 15:40 KAY 40332 (REASON FOR EXAM: PE CTA OF THE CHEST WITH CONTRAST: INDICATION: Pulmonary embolism. FINDINGS: The neck base is clear. Evaluation of the lungs is slightly limited due to expiratory phase of the examination and respiratory motion artifact. Within these limitations, there is no evidence of focal infiltrate. Mild chronic interstitial changes are noted. The heart is normal in size. There is no pulmonary embolism. No lymphadenopathy. The visualized upper abdomen demonstrates a dilated gallbladder without gallbladder wall thickening and multiple parapelvic cysts in the kidneys. There is no acute osseous abnormality. IMPRESSION: No pulmonary embolism. No acute pulmonary process. While performing the above CT examination, radiation dose reduction was accomplished utilizing automated exposure control, adjusting of the mA and kV based on the patient's body size and/or the use of imperative reconstructive techniques. CT dose: 542 mGycm Contrast agent in mL: 75 Isovue 370 Page 1 of 2 [facility] [address] [place] [address] PHONE: [phone] FAX: [phone] Name .................. : DAQUAN Peace Acct Number.................. : [id number] ROOM. ................. : Number ................... : [id number] Stay type ............. : O/P Discharge Date......... ... : 06/16/19 Admit Date ......... : 06/16/19 Admit Phys .................... : WILLIAM MIR Date of ....... : 1950 Family Phys ................... : JANINA Phone .................. : [phone] Age ................................ : 69 Film# .................. .:[id number] Sex ................................. : F Unsigned transcriptions are preliminary reports and do not represent a medical or legal document CT CTA CHEST NON-CORONARY W C 15894 COMPLETE:06/16/19 15:40 KAY 32762 (REASON FOR EXAM: PE Method of administration: Intravenous Electronically Reviewed and Signed By Reginald Quintero M.D. , 06/17/19 10:36, [place] Transcribe Initials: DZ , Transcribe Date: 06/17/19 06:10, Dictation Date: Copy for: WILLIAM CORTEZ via [employer] Copy for: 710 MED REC Page 2 of 2 Name Value Range Interpretation Code Description Data Solange rce(s) Supporting Document(s) ID Date Data Source [id number] 06/10/2019 11:54:00 [place] [address] PHONE: [phone] FAX: [phone] Name .................. : DAQUAN Peace Acct Number.................. : [id number] ROOM. ................. : MR Number ................... : [id number] Stay type ............. : O/P Discharge Date......... ... : 06/08/19 Admit Date ....... .. : 06/08/19 Admit Phys .................... : WILLIAM AHSAN Date of ....... : 1950 Family Phys ................... : [email or web address] Phone .................. : [phone] Age ................................ : 69 Film# .................. .:[id number] Sex ................................. : F Unsigned transcriptions are preliminary reports and do not represent a medical or legal document CT THORAX W/O CONTRAST [id number] COMPLETE:06/08/19 19:30 KAH 08779 (REASON FOR CHEST: CHF CT OF THE CHEST WITHOUT CONTRAST: HISTORY: CHF. TECHNIQUE: Noncontrast CT examination of the chest is acquired. Coronal and axial images were reformatted. FINDINGS: No reactive mediastinal or hilar adenopathy. No cardiac enlargement or pericardial effusion. No aneurysmal dilatation of the aorta. The lungs are clear. No infiltrate or congestive failure. No pleural effusion. No suspicious pulmonary nodules. The osseous structure are unremarkable. Axial images through the upper abdomen reveal a fluid-distended gallbladder. Prominent common bile duct. Cannot rule out the possibility of a small 3 mm stone in the common bile duct. Correlation recommended. IMPRESSION: No congestive failure. No infiltrate or effusion. Gallbladder is somewhat distended. A common bile duct stone near the ampulla of Vater measuring 3 mm is not excluded. Correlation is recommended. While performing the above CT examination, radiation dose reduction was accomplished utilizing automated exposure control, adjusting of the mA and kV based on the patient's body size and/or the use of imperative reconstructive techniques. CT dose: 456 mGycm Page 1 of 2 [place] [address] PHONE: [phone] FAX: [phone] Name .................. : DAQUAN Peace Acct Number.................. : [id number] ROOM. ................. : Number ................... : [id number] Stay type ............. : O/P Discharge Date......... ... : 06/08/19 Admit Date ......... : 06/08/19 Admit Phys .................... : WILLIAM FOREMAN Date of ....... : 1950 Family Phys ................... : JANINA Phone .................. : [phone] Age ................................ : 69 Film# .................. .:[id number] Sex ................................. : Mamta contreras transcriptions are preliminary reports and do not represent a medical or legal document CT THORAX W/O CONTRAST 46404 COMPLETE:06/08/19 19:30 KAH 94946 (REASON FOR CHEST: CHF Electronically Reviewed and Signed By Jasen Sloan MD , 06/10/19 11:54, TERRI Transcribe Initials: DZ , Transcribe Date: 06/08/19 23:11, Dictation Date: Copy for: WILLIAM CORTEZ via mode Copy for: 710 MED REC Page 2 of 2 Name Value Range Interpretation Code Description Data Solange rce(s) Supporting Document(s) ID Date Data Source [id number] 06/08/2019 02:33:00 PM EST [facility] Name Value Range Interpretation Code Description Data Solange rce(s) Supporting Document(s) BNP 202 PG/ML 0 - 125 [facility] ID Date Data Source [id number] 06/08/2019 02:22:00 PM EST [facility] Name Value Range Interpretation Code Description Data Solange rce(s) Supporting Document(s) Cobalamin (Vitamin B12) [Mass/volume] in Serum or Plasma 649 PG/ML 232 - 1245 [facility] ID Date Data Source [id number] 06/08/2019 02:22:00 PM [facility] Name Value Range Interpretation Code Description Data Solange rce(s) Supporting Document(s) Thyrotropin [Units/volume] in Serum or Plasma by Detec tion limit <= 0.05 mIU/L 0.93 uIU/mL 0.47 - 5.01 [facility] ID Date Data Source [id number] 06/08/2019 02:21:00 PM EST [facility] Name Value Range Interpretation Code Description Data Solange rce(s) Supporting Document(s) COMPREHENSIVE METABOLIC PANEL [facility] COMPREHENSIVE METABOLIC PANEL Sodium [Moles/volume] in Serum or Plasma 141 mEq/L 134 - 153 [facility] Potassium [Moles/volume] in Serum or Plasma 4.2 mEq/L 3.6 - 5.0 [facility] Chloride [Moles/volume] in Serum or Plasma 106 mEq/L 98 - 107 [facility] Carbon dioxide, total [Moles/volume] in Serum or Plasma 22 MEQ/L 22 - 30 [facility] Glucose [Mass/volume] in Serum or Plasma 136 MG/DL 65 - 110 H [facility] BUN 23 MG/DL 7 - [address] [facility] Creatinine [Mass/volume] in Serum or Plasma 1.1 MG/DL 0.7 - 1.5 [facility] BUN/CREAT 21 8 - 27 [facility] Protein [Mass/volume] in Serum or Plasma 7.1 G/DL 6.3 - 8.2 [facility] Albumin [Mass/volume] in Serum or Plasma 4.6 G/DL 3.9 - 5.0 [facility] Globulin [Mass/volume] in Serum by calculation 2.5 GM/DL 2.4 - 3.2 [facility] A/G RATIO 1.8 0.8 - 2.0 [facility] Calcium [Mass/volume] in Serum or Plasma 10.0 MG/DL 8.4 - 10.2 [facility] Bilirubin.total [Mass/volume] in Serum or Plasma <0.7 MG/DL 0.2 - 1.3 [facility] Alkaline phosphatase [Enzymatic activity/volume] in Serum or Plasma 78 U/L 38 - 126 [facility] Aspartate aminotransferase [Enzymatic activity/volume] in Serum or Plasma 15 U/L 5 - 40 [facility] Alanine aminotransferase [Enzymatic activity/volume] in Seru m or Plasma 14 U/L 7 - 56 [facility] Anion gap 3 in Serum or Plasma 13.0 mmol/L 8.0 - 16.0 [facility]GE [address] [facility] 52 mL/min [facility] shawn AFR AMER GFR >60 [facility] Male GFR In terprentation 20-49 yrs >60 mL/min Normal 50-59 yrs >56 mL/min Normal 60-69 yrs >49 mL/min Normal 70-79yrs >42 mL/min Normal 80 and above >35 mL/min Normal Female GFR Interpretation 20-39 yrs >60 mL/min Normal 40-49 yrs >58 mL/min Normal 50-59 yrs >51 mL/min Normal 60-69 yrs >45 mL/min Normal 70-79 yrs >39 mL/min Normal 80 and above >32 mL/min Normal ID Date Data Source [id number] 06/08/2019 02:16:00 PM [facility] Name Value Range Interpretation Code Description Data Solange rce(s) Supporting Document(s) Iron [Mass/volume] in Serum or Plasma 79 UG/DL 42 - 135 [facility] ID Date Data Source [id number] 06/08/2019 02:16:00 PM [facility] Name Value Range Interpretation Code Description Data Solange rce(s) Supporting Document(s) Magnesium [Mass/volume] in Serum or Plasma 1.7 MG/DL 1.7 - 2.2 [facility] ID Date Data Source [id number] 06/08/2019 02:03:00 PM [facility] Value Range Interpretation Code Description Data Solange rce(s) Supporting Document(s) URINALYSIS [facility] URINALYSIS SOURCE R [facility] COLOR yellow NORMAL: Yellow [facility] CLARITY clear NORMAL: Clear [facility] Specific gravity of Urine by Test strip 1.015 1.001 - 1.030 [facility] pH 5 5 - 9 [facility] Glucose [Mass/volume] in Urine by Test strip NORM NORMAL: Negat [facility] Bilirubin.total [Presence] in Urine by Test strip NEG NORMAL: Negative [facility] Ketones [Presence] in Urine by Test strip NEG NORMAL: Negative [facility] Protein [Mass/volume] in Urine by Test strip 30 NORMAL: Negat [facility] Nitrite [Presence] in Urine by Test strip NEG NORMAL: Negative [facility] BLOOD NEG NORMAL: Negative [facility] Leukocyte esterase [Presence] in Urine by Test strip 25 ÓSCAR L: Negative [facility] Urobilinogen [Mass/volume] in Urine by Test strip NOR less ariella n 1.0 mg/dL [facility] MICROSCOPIC See Below [facility] WBC 0 - 1 NORMAL: NONE SEEN [facility] EPITHELIAL FEW NORMAL: NONE SEEN [facility] ID Date Data Source [id number] 06/08/2019 01:54:00 PM [facility] Name Value Range Interpretation Code Description Data Solange rce(s) Supporting Document(s) Erythrocyte sedimentation rate by Westergren method 66 mm/hr 0 - 30 H [facility] SED RATE REENTER 66 [facility] ID Date Data Source [id number] 06/08/2019 01:47:00 PM [facility] Name Value Range Interpretation Code Description Data Solange rce(s) Supporting Document(s) Fibrin D-dimer FEU [Mass/volume] in Platelet poor plasma 1.11 ug /mL 0.27 - 0.50 H [facility] ID Date Data Source [id number] 06/08/2019 01:39:00 PM [facility] Name Value Range Interpretation Code Description Data Solange rce(s) Supporting Document(s) Hemoglobin A1c/Hemoglobin.total in Blood 6.7 % 4.4 - 6.1 H [facility] {A1]{HB] ID Date Data Source [id number] 06/08/2019 01:28:00 PM [facility] Name Value Range Interpretation Code Description Data Solange rce(s) Supporting Document(s) CBC NO DIFF [facility] ital COMPLETE BLOOD COUNT Leukocytes [#/volume] in Blood by Automated count 10.1 10^3/uL 4.2 - 11.0 [facility] Erythrocytes [#/volume] in Blood by Automated count 3.57 10^6/uL 4. 20 - 5.40 L [facility] Hemoglobin [Mass/volume] in Blood 11.4 g/dL 12.0 - 16.0 L [facility] Hematocrit [Volume Fraction] of Blood by Automated count 35.7 % 3 7.0 - 47.0 L [facility] Erythrocyte mean corpuscular volume [Entitic volume] b y Automated count 100.0 fL 81.0 - 101 [facility] Erythrocyte mean corpuscular hemoglobin [Entitic mass] by Automated count 31.9 pg 27.0 - 34.0 [facility] Erythrocyte mean corpuscular hemoglobin concentration [Mass/volume] by Automated count 31.9 g/dL 31.0 - 36.0 [facility] Erythrocyte distribution width [Ratio] by Automated count 13.3 % 11.5 - 14.5 [facility] Platelets [#/volume] in Blood by Automated count 391 10^3/uL 150 - 45 0 [facility] Platelet mean volume [Entitic volume] in Blood by Automated count 8.7 fL 7.4 - 10.4 [facility] Procedure Vital Signs ID Date Data Source UNK Name Value Range Interpretation Code Description Data Source(s) Oxygen saturation in Arterial blood by Pulse oximetry 99 % 99 % [facility] (Dana Harry MD) Heart rate 81 /min 81 /min [facility] (Dana Harry MD) Diastolic blood pressure 85 mm[Hg] 85 mm[Hg] [facility] (Dana Harry MD) Systolic blood pressure 164 mm[Hg] 164 mm[Hg] M EDMARILYNN (Dana Harry MD) Body temperature 97.9 [degF] 97.9 [degF] [facility] (Dana Harry MD) Body mass index (BMI) [Ratio] 39.7 kg/m2 39.7 k g/m2 [facility] Harry MD) Body weight 246.00 [lb_av] 246.00 [lb_av] MED[facility] T (Dana Harry MD) Body height 66 [in_i] 66 [in_i] [facility] 5'6" Body surface area Derived from formula 2.21 m2 2.21 m2 [facility] ([facility]) Body weight 111.756 kg 111.756 kg [facility] ([facility]) [place] body weight 135 [lb_av] 135 [lb_av] MED[facility] T ([facility]) Body mass index (BMI) [Ratio] 38.6 kg/m2 38.6 k g/m2 [facility] ([facility]) Body weight 246.38 [lb_av] 246.38 [lb_av] [facility] Body height 67 [in_i] 67 [in_i] [facility] ([facility]) 5'7" Diastolic blood pressure 76 mm[Hg] 76 mm[Hg] [facility] ([facility]) Systolic blood pressure 144 mm[Hg] 144 mm[Hg] Aibsai SAUCEDO ([facility])
[2020-06-19] MEDS ORDERED: BUPIVACAINE HCL 0.25% 10ML VIAL As Ordered ONE (12:40)
[2020-06-19] MEDS ORDERED: BUPIVACAINE LIPOSOME/PF 1.3% 20ML VIAL (13.3MG/ML)(EXPAREL)(C9290 PER1MG) As Ordered ONE (12:41)
[2020-06-19] MEDS ORDERED: HumaLOG INSULIN (NovoLOG) PER UNIT As Ordered ONE (14:28)
[2020-06-19] MEDS ORDERED: SUGAMMADEX SODIUM 500 MG/5 ML VIAL (BRIDION) As Ordered ONE (14:46)
[2020-06-19] MEDS ORDERED: propofoL 200 MG/20 ML VIAL As Ordered ONE (14:46)
[2020-06-19] MEDS ORDERED: ROCURONIUM BROMIDE 50 MG/5 ML VIAL As Ordered ONE (14:46)
[2020-06-19] MEDS ORDERED: fentaNYL 250 MCG/5 ML INJECTION (J3010) As Ordered ONE (14:46)
[2020-06-19] MEDS ORDERED: ONDANSETRON 4MG/2ML VIAL As Ordered ONE (14:46)
[2020-06-19] MEDS ORDERED: dexameTHASONE 4 MG/ML 1ML VIAL (J1100 PER 1MG) As Ordered ONE (14:46)
[2020-06-19] MEDS ORDERED: LIDOCAINE 2% 100MG/5ML SDV (FOR ANES.) As Ordered ONE (14:46)
[2020-06-19] MEDS ORDERED: METOCLOPRAMIDE INJ 10MG/2ML VIAL (J2765 PER 1) As Ordered ONE (14:46)
[2020-06-19] MEDS ORDERED: MIDAZOLAM INJ 2MG/2ML VIAL (J2250 PER 1MG) As Ordered ONE (14:46)
[2020-06-19] MEDS ORDERED: ACETAMINOPHEN 1000MG 100ML IV BTL (OFIRMEV) (J0131 PER 10MG) As Ordered ONE (14:58)
[2020-06-19] MEDS ORDERED: HumaLOG INSULIN (NovoLOG) PER UNIT SC ONE (15:00)
[2020-06-19] MEDS ORDERED: KETOROLAC 60MG 2ML VIAL As Ordered ONE (15:03)
[2020-06-19] MEDS ORDERED: KETOROLAC 30 MG/ML 1ML VIAL IV PRN (15:15)
[2020-06-19] MEDS ORDERED: NORCO, ANEXSIA 5/325MG TABLET (HYDROcodone/ACETAMINOPHEN) PO PRN (16:45)
[2020-06-19] MEDS ORDERED: NS 1,000 ML IV SCH (16:45)
[2020-06-19] MEDS ORDERED: traMADol 50 MG TAB PO PRN (16:45)
[2020-06-19] MEDS ORDERED: fentaNYL 100 MCG/2 ML INJECTION (J3010) IV PRN (16:45)
[2020-06-19] MEDS ORDERED: LR 1,000 ML IV SCH (16:45)
[2020-06-19] MEDS ORDERED: METOCLOPRAMIDE INJ 10MG/2ML VIAL (J2765 PER 1) IV PRN (16:45)
[2020-06-19] MEDS ORDERED: ONDANSETRON 4MG/2ML VIAL IV PRN (16:45)
[2020-06-19] MEDS ORDERED: PERCOCET 5MG/325MG TAB PO PRN (16:45)
[2020-06-19 16:50] VITALS: BP 136/83
== END 2020-06-19 17:15 | disposition home or self-care (01) ==
LOC: M SDC 11:37
PROVIDERS: ATTEND Surgery
DX: K42.9 Umbilical hernia without obstruction or gangrene (principal); I10 Essential (primary) hypertension; E78.49 Other hyperlipidemia; K21.9 Gastro-esophageal reflux disease without esophagitis; E11.9 Type 2 diabetes mellitus without complications; D64.9 Anemia, unspecified; J45.909 Unspecified asthma, uncomplicated; F32.9 Major depressive disorder, single episode, unspecified; F41.9 Anxiety disorder, unspecified; Z79.899 Other long term (current) drug therapy
CPT/HCPCS: 49585; 88302; C9290; J0131; J0690; J1100; J1885; J2250; J2405; J2765; J3010

== ENCOUNTER → 2020-08-11 | Outpatient (CLI) | payer MEDICARE, MEDICAID ==
[~2020-08-11] MED LIST changes: +CYMB60CA3 PO; +GLIM2TAB4 PO; +HYDR12.55 PO; -LIDOCAINE 1% MDV 20ML VIAL SQ PRN; -LR 1,000 ML IV ONE; -MEDR10TA; +MEDR10TA PO; -METO1TAB7; +METO1TAB7 PO; -MONT10TA10; +MONT10TA10 PO; -ceFAZolin SOD 1 GM in D5W MINI-BAG PLUS 50 ML IV ONE
== END ==
LOC: M LABSMTC 09:25
PROVIDERS: ATTEND Anesthesiology
DX: Z01.812 Encounter for preprocedural laboratory examination (principal); Z20.828 Contact with and (suspected) exposure to other viral communicable diseases

== ENCOUNTER 2020-08-16 13:02 | Day surgery (SDC) | payer MEDICARE, MEDICAID ==
[~2020-08-16] VITALS: Ht 167.6 cm; Wt 106.1 kg
[~2020-08-16 13:02] MED LIST changes: +NS 1,000 ML IV ONE
[2020-08-16] MEDS ORDERED: propofoL 200 MG/20 ML VIAL As Ordered ONE ×2 (15:05→15:12)
--- NOTE | 2020-08-16 15:38 | ROOR ---
Patient Name: Isela Lopez Procedure Date: 08/16/2020 3:07 PM Date of : 1950 Age: 70 Room: [facility] Gender: Female Note Status: Finalized Procedure: Colonoscopy Indications: Lower abdominal pain, Rectal pain Providers: Alberto Mills Jr, MD Referring MD: Jose Alejandro Harry MD Requesting Provider: Medicines: Propofol per Anesthesia Complications: No immediate complications. Procedure: Pre-Anesthesia Assessment: - Prior to the procedure, a History and Physical was performed, and patient medications and allergies were reviewed. The patient is competent. The risks and benefits of the procedure and the sedation options and risks were discussed with the patient. All questions were answered and informed consent was obtained. Patient identification and proposed procedure were verified by the physician and the nurse in the pre-procedure area and in the procedure room. Mental Status Examination: alert and oriented. Airway Examination: normal oropharyngeal airway and neck mobility. Respiratory Examination: clear to auscultation. CV Examination: normal. ASA Grade Assessment: III - A patient with severe systemic disease. After reviewing the risks and benefits, the patient was deemed in satisfactory condition to undergo the procedure. The anesthesia plan was to use moderate sedation / analgesia (conscious sedation). Immediately prior to administration of medications, the patient was re-assessed for adequacy to receive sedatives. The heart rate, respiratory rate, oxygen saturations, blood pressure, adequacy of pulmonary ventilation, and response to care were monitored throughout the procedure. The physical status of the patient was re-assessed after the procedure. The Colonoscope was introduced through the anus and advanced to the cecum, identified by appendiceal orifice and ileocecal valve. The colonoscopy was performed without difficulty. The patient tolerated the procedure well. The quality of the bowel preparation was fair. Findings: The rectum, recto-sigmoid colon, transverse colon, ascending colon, cecum and appendiceal orifice appeared normal. Three semi-sessile polyps were found in the sigmoid colon, ascending colon and ileocecal valve. The polyps were small in size. These polyps were removed with a cold snare. Resection and retrieval were complete. Multiple small and large-mouthed diverticula were found in the sigmoid colon. Impression: - Preparation of the colon was fair. - The rectum, recto-sigmoid colon, transverse colon, ascending colon, cecum and appendiceal orifice are normal. - Three small polyps in the sigmoid colon, in the ascending colon and at the ileocecal valve, removed with a cold snare. Resected and retrieved. - Diverticulosis in the sigmoid colon. Recommendation: - Discharge patient to home (ambulatory). - Repeat colonoscopy in 5-10 years for surveillance based on pathology results. Procedure Code(s): --- Professional --- 47624, Colonoscopy, flexible; with removal of tumor(s), polyp(s), or other lesion(s) by snare technique Diagnosis Code(s): --- Professional --- K63.5, Polyp of colon R10.30, Lower abdominal pain, unspecified K57.30, Diverticulosis of large intestine without perforation or abscess without bleeding K62.89, Other specified diseases of anus and rectum CPT copyright 2019 [employer]. All rights reserved. The codes documented in this report are preliminary and upon lamp tester and inspector review may be revised to meet current compliance requirements. Alberto Mills MD Alberto Mills Jr, MD 08/16/2020 3:38:03 PM Electronically signed by Alberto Mills Jr, MD Number of Addenda: 0 Note Initiated On: 08/16/2020 3:07 PM Estimated Blood Loss: Estimated blood loss: none.
[2020-08-16 16:00] VITALS: BP 169/92
== END 2020-08-16 16:10 | disposition home or self-care (01) ==
LOC: M OPP 13:02
PROVIDERS: ATTEND Surgery
DX: D12.6 Benign neoplasm of colon, unspecified (principal); K57.30 Diverticulosis of large intestine without perforation or abscess without bleeding; R10.30 Lower abdominal pain, unspecified; K62.89 Other specified diseases of anus and rectum; E11.9 Type 2 diabetes mellitus without complications; Z79.899 Other long term (current) drug therapy; Z88.2 Allergy status to sulfonamides; Z88.8 Allergy status to other drugs, medicaments and biological substances

== ENCOUNTER → 2020-10-25 | Outpatient (CLI) | payer MEDICARE, MEDICAID ==
[~2020-10-25] MED LIST changes: +ERGO500029; +GASTROGRAFIN SOLUTION 30ML (Q9963) As Ordered ONE; +ISOVUE-370 76% 100ML VIAL As Ordered ONE; -NS 1,000 ML IV ONE; -VITA50005
--- NOTE | 2020-10-25 16:57 | REP ---
INDICATION: INTRA ABD PAIN SWELLING MASS LUMP. COMPARISON: 03/30/2019, 04/07/2018 TECHNIQUE: Axial contrast-enhanced images from the lung bases to the pubic symphysis using oral and 100 cc Isovue 370 intravenous contrast material. Coronal and sagittal reformations obtained. This CT examination was performed using the following dose reduction techniques: Automated exposure control, adjustment of mA and/or kv according to the patient's size, and the use of iterative reconstruction technique. FINDINGS: Liver, spleen, pancreas, gallbladder, bilateral adrenal glands and kidneys are stable and essentially normal. Incidental bilateral peripelvic renal cysts again noted and unchanged. The enteric system is without obstruction or acute inflammatory process. Normal terminal ileum and appendix identified in the right lower quadrant. Colonic and significant sigmoid diverticulosis noted without acute diverticulitis. Pelvis includes 2 heterogeneous mass lesions measuring 8.2 cm maximal diameter each which appear increased from 2019 along with 3rd more superior somewhat elongated soft tissue lesion measuring roughly 5.6 x 3.0 cm which has decreased from prior examination (series 201; image 123). These lesions are of uncertain etiology as the patient appears to be status post hysterectomy. Bladder is grossly normal although demonstrates mass effects and sandwiched between the above-mentioned 8 cm lesions. No ascites. No free air. No intraperitoneal or retroperitoneal adenopathy. Abdominal aorta and vasculature appear normal. Musculoskeletal structures are intact and without acute osseous abnormality. Lung bases are clear. IMPRESSION: 1. Three pelvic mass lesions which have been documented since 2018 of uncertain etiology. No new lesions, adenopathy, or ascites noted. 2. Further nonacute chronic findings including bilateral peripelvic renal cysts and diverticulosis. <Electronically signed by Zeferino Ruiz > 10/25/20 [id number]
== END ==
LOC: M RAD 14:47
PROVIDERS: ATTEND Obstetrics & Gynecology
DX: R19.00 Intra-abdominal and pelvic swelling, mass and lump, unspecified site (principal); R10.30 Lower abdominal pain, unspecified
CPT/HCPCS: 74177; Q9963; Q9967

== ENCOUNTER → 2020-10-31 | Outpatient (CLI) | payer MEDICARE, MEDICAID ==
[~2020-10-31] MED LIST changes: -GASTROGRAFIN SOLUTION 30ML (Q9963) As Ordered ONE; -ISOVUE-370 76% 100ML VIAL As Ordered ONE
== END ==
LOC: M LABSMTC 10:05
PROVIDERS: ATTEND Anesthesiology Pain Medicine
DX: Z01.812 Encounter for preprocedural laboratory examination (principal); Z20.822 Contact with and (suspected) exposure to COVID-19

== ENCOUNTER 2021-01-04 03:56 | Emergency (ER) | payer MEDICARE, MEDICAID ==
[~2021-01-04] VITALS: Ht 167.6 cm; Wt 116.0 kg
[~2021-01-04 03:56] MED LIST changes: -CYMB60CA3 PO; +CYMB60CA4 PO
[2021-01-04] MEDS ORDERED: NS 1,000 ML IV ONE (04:10)
[2021-01-04] MEDS ORDERED: ACETAMINOPHEN 325 MG TAB PO ONE (04:10)
[2021-01-04] MEDS ORDERED: ONDANSETRON 4MG/2ML VIAL IV ONE ×2 (04:15→04:40)
[2021-01-04 04:29] LABS: VENOUS BASE EXCESS -7.1 (-2.0-2.0); VENOUS HCO3 16.8 MEQ/L (23.0-27.0); VENOUS O2 SATURATION 89.7 % (60.0-80.0); VENOUS PARTIAL PRESSURE CO2 29.1 mmHg (38.0-50.0); VENOUS PARTIAL PRESSURE O2 60.8 mmHg (30.0-50.0); VENOUS STANDARD HCO3 18.5 MEQ/L; VENOUS TOTAL CO2 17.7 MEQ/L (24.0-28.0)
[2021-01-04 04:33] LABS: BASO % 0.2 % (0.0-1.0); EOS % 0.2 % (0.0-3.0); HEMOGLOBIN 10.2 g/dl (12.0-15.5); LYMPH # 0.1 10^3/uL (1.5-5.0); LYMPH % 1.2 % (24.0-44.0); MEAN CORPUSCULAR HEMOGLOBIN 31.7 pg (27.0-33.0); MEAN CORPUSCULAR HGB CONC 31.9 g/dl (32.0-36.5); MEAN CORPUSCULAR VOLUME 99.4 fl (80.0-96.0); MONO # 0.4 10^3/uL (0.0-0.8); MONO % 3.3 % (2.0-8.0); NEUTROPHILS # 10.8 10^3/uL (1.5-8.5); NEUTROPHILS % 93.9 % (36.0-66.0); PLATELET COUNT, AUTOMATED 391 10^3/uL (150-450); RED BLOOD COUNT 3.22 10^6/uL (4.00-5.40); WHITE BLOOD COUNT 11.5 10^3/uL (4.0-10.0)
[2021-01-04] MEDS ORDERED: PIPERACILLIN/TAZOBACTAM SOD 4.5 GM in D5W MINI-BAG PLUS 50 ML IV ONE ×2 (04:40→13:00)
[2021-01-04] MEDS ORDERED: NS 2,480 ML in IV 1 EA IV ONE (04:40)
[2021-01-04 04:44] LABS: INR 1.11; PROTHROMBIN TIME 14.7 SECONDS (12.7-14.5)
[2021-01-04 04:45] LABS: PARTIAL THROMBOPLASTIN TIME 30.4 SECONDS (25.9-37.0)
[2021-01-04] MEDS ORDERED: ISOVUE-370 76% 100ML VIAL As Ordered ONE (04:49)
[2021-01-04] MEDS: MORPHINE 2 MG/ML 1ML VIAL (J2270) IV PRN ×2 (04:51→06:09)
[2021-01-04 05:07] LABS: AMORPHOUS SEDIMENT SMALL (NEGATIVE); APPEARANCE, URINE CLOUDY (CLEAR); BACTERIA, URINE AUTO 1+ (NEGATIVE); BILIRUBIN, URINE AUTO 1+ (NEGATIVE); BLOOD, URINE BLOOD 1+ (NEGATIVE); COLOR, URINE AMBER (YELLOW); GLUCOSE, URINE (UA) AUTO 1+ mg/dL (NEGATIVE); GRANULAR CAST, URINE AUTO 17 /LPF; KETONE, URINE AUTO TRACE mg/dL (NEGATIVE); LEUKOCYTE ESTERASE, URINE AUTO NEGATIVE (NEGATIVE); MUCUS, URINE SMALL (NEGATIVE); NITRITE, URINE AUTO NEGATIVE (NEGATIVE); PROTEIN, URINE AUTO 2+ mg/dL (NEGATIVE); RBC, URINE AUTO 3 /HPF (0-3); SPECIFIC GRAVITY URINE AUTO 1.016 (1.002-1.035); SQUAMOUS EPITHELIAL CELL UR AU 5 /HPF (0-6); TRANSITIONAL EPITHELIAL AUTO 1 /HPF; WBC, URINE AUTO 4 /HPF (0-3)
[2021-01-04 05:08] LABS: RSV AMPLIFICATION NEGATIVE (NEGATIVE)
[2021-01-04 05:25] LABS: ALBUMIN 2.5 GM/DL (3.2-5.2); ALT/SGPT 2339 U/L (12-78); AMYLASE 38 U/L (25-115); BILIRUBIN,DIRECT 2.1 MG/DL (0.0-0.2); BILIRUBIN,TOTAL 2.4 MG/DL (0.2-1.0); BLOOD UREA NITROGEN 22 MG/DL (7-18); C REACTIVE PROTEIN QUANTITATIV 8.49 MG/DL (0.00-0.30); CARBON DIOXIDE LEVEL 17 MEQ/L (21-32); CHLORIDE LEVEL 106 MEQ/L (98-107); CK-MB VALUE MASS < 1.0 NG/ML (<3.6); CPK CREATINE PHOSPHOKINASE 99 U/L (26-192); CREATININE FOR GFR 1.74 MG/DL (0.55-1.30); GLOMERULAR FILTRATION RATE 30.6 (>39); GLUCOSE, FASTING 353 MG/DL (70-100); MB/CK RELATIVE INDEX 1.01 (< OR =4); POTASSIUM SERUM 3.4 MEQ/L (3.5-5.1); SODIUM LEVEL 140 MEQ/L (136-145); TOTAL PROTEIN 5.4 GM/DL (6.4-8.2); TROPONIN I 0.07 NG/ML (< 0.10)
--- NOTE | 2021-01-04 05:35 | ECGEPIP ---
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
[2021-01-04 06:00] LABS: LIPASE 111 U/L (73-393)
--- NOTE | 2021-01-04 06:13 | REPVR ---
PROCEDURE INFORMATION: Exam: CT Head Without Contrast Exam date and time: 01/04/2021 4:56 AM Age: 70 years old Clinical indication: Injury or trauma; Fall; Concussion/head injury TECHNIQUE: Imaging protocol: Computed tomography of the head without contrast. Radiation optimization: All CT scans at this facility use at least one of these dose optimization techniques: automated exposure control; mA and/or kV adjustment per patient size (includes targeted exams where dose is matched to clinical indication); or iterative reconstruction. COMPARISON: No relevant prior studies available. FINDINGS: Brain: The cortical/white matter interfaces are preserved throughout the brain. There is no evidence of intracranial hemorrhage. Cerebral ventricles: The ventricular system is normal in size and configuration. Paranasal sinuses: The sinuses are clear. Mastoid air cells: There is fluid in the left mastoid air cells. Bones/joints: No acute fractures of the skull are identified. Hyperostosis frontalis is incidentally noted. Soft tissues: The soft tissues appear unremarkable. IMPRESSION: 1. Normal appearance of the brain. No evidence of acute intracranial injury. 2. Left mastoid effusion. Electronically signed by: Jacque Ribera On 01/04/2021 06:12:45 AM
--- NOTE | 2021-01-04 06:17 | REPVR ---
PROCEDURE INFORMATION: Exam: XR Chest Exam date and time: 01/04/2021 4:40 AM Age: 70 years old Clinical indication: Other: Sepsis/shock TECHNIQUE: Imaging protocol: XR of the chest. Views: 1 view. COMPARISON: 1. CR Chest, 2 view RUDY Lat 2018-04-07 08:[address] ANGIO CHEST 2018-04-07 10:[address] ABD/PEL W/IV CONTRAST ONLY 2020-10-25 16:[address] ABD PELVIS W/O FOL BY WIT 2019-03-30 15:19 FINDINGS: Limitations: Limited by patient's body habitus. Lungs: No focal airspace consolidation. Pleural spaces: Unremarkable. No pleural effusion. No pneumothorax. Heart/Mediastinum: Unremarkable. No cardiomegaly. Bones/joints: Unremarkable. IMPRESSION: No focal airspace consolidation. Electronically signed by: Jim Baldwin On 01/04/2021 06:17:09 AM
--- NOTE | 2021-01-04 06:18 | REPVR ---
PROCEDURE INFORMATION: Exam: CT Cervical Spine Without Contrast Exam date and time: 01/04/2021 4:56 AM Age: 70 years old Clinical indication: Neck pain; Additional info: Fall TECHNIQUE: Imaging protocol: Computed tomography images of the cervical spine without contrast. Radiation optimization: All CT scans at this facility use at least one of these dose optimization techniques: automated exposure control; mA and/or kV adjustment per patient size (includes targeted exams where dose is matched to clinical indication); or iterative reconstruction. COMPARISON: CT ANGIO CHEST 04/07/2018 10:15 AM FINDINGS: Limitations: There is beam hardening artifact especially through the lower cervical spine, which is probably related to patient body habitus. Bones/joints: There is no evidence of acute fracture. There is normal alignment of the visualized spine. Discs/Spinal canal/Neural foramina: Disc space narrowing and degenerative endplate sclerosis and endplate spurs are seen at the C5-C6 and C6-C7 levels. Assessment of the spinal canal is somewhat limited. There appears to be a mild stenosis at C5-C6. Prevertebral Space: The prevertebral soft tissues appear normal. Thyroid: The thyroid gland appears mildly enlarged, lobular in shape, diffusely heterogeneous in density, but without distinct nodules. Lungs: The visualized lungs are grossly clear. Soft tissues: The paraspinous soft tissues appear unremarkable. IMPRESSION: 1. No acute fractures or subluxations. 2. Evidence of degenerative disc disease at C5-C6 and C6-C7. Electronically signed by: Jacque Ribera On 01/04/2021 06:18:15 AM
--- NOTE | 2021-01-04 06:29 | REPVR ---
PROCEDURE INFORMATION: Exam: CTA Chest With Contrast Exam date and time: 01/04/2021 4:40 AM Age: 70 years old Clinical indication: Pain; Other: Chest; Additional info: Chest pain TECHNIQUE: Imaging protocol: Computed tomographic angiography of the chest with contrast. 3D rendering (Not supervised by radiologist): MIP and/or 3D reconstructed images were created by the technologist. Radiation optimization: All CT scans at this facility use at least one of these dose optimization techniques: automated exposure control; mA and/or kV adjustment per patient size (includes targeted exams where dose is matched to clinical indication); or iterative reconstruction. Contrast material: ISO; Contrast volume: 100 ml; Contrast route: INTRAVENOUS (IV); COMPARISON: 1. CT ANGIO CHEST 2018-04-07 10:15 2. CR PORTABLE CHEST X-RAY 2021-01-04 04:17 FINDINGS: Pulmonary arteries: The pulmonary arteries demonstrate mild central enlargement, consistent with mild pulmonary hypertension. No filling defects in the pulmonary arteries to suggest pulmonary emboli. Aorta: Bovine aortic arch configuration. Lungs: Unremarkable. No consolidation. No masses. Pleural spaces: Trace right-sided pleural effusion. Heart: Unremarkable. No cardiomegaly. No pericardial effusion. Mediastinal space: Mild gastro-esophageal thickening. Question distal esophagitis. Lymph nodes: Unremarkable. No enlarged lymph nodes. Bones/joints: Unremarkable. No acute fracture. Soft tissues: Unremarkable. IMPRESSION: 1. Mild gastro-esophageal thickening. Question distal esophagitis. 2. No filling defects in the pulmonary arteries to suggest pulmonary emboli. Electronically signed by: Jim Baldwin On 01/04/2021 06:29:19 AM
--- NOTE | 2021-01-04 06:35 | REPVR ---
PROCEDURE INFORMATION: Exam: CT Abdomen And Pelvis With Contrast Exam date and time: 01/04/2021 4:40 AM Age: 70 years old Clinical indication: Abdominal pain; Localized; Lower TECHNIQUE: Imaging protocol: Computed tomography of the abdomen and pelvis with contrast. Radiation optimization: All CT scans at this facility use at least one of these dose optimization techniques: automated exposure control; mA and/or kV adjustment per patient size (includes targeted exams where dose is matched to clinical indication); or iterative reconstruction. Contrast material: ISO; Contrast volume: 100 ml; Contrast route: INTRAVENOUS (IV); COMPARISON: 1. CT ABD/PEL W/IV CONTRAST ONLY 2020-10-25 16:[address] ABD PELVIS W/O FOL BY WIT 2019-03-30 15:19 FINDINGS: Tubes, catheters and devices: A balloon bladder catheter is present. Liver: Normal. No mass. Gallbladder and bile ducts: Gallbladder distension, possible wall thickening without radiopaque stones. Mild intrahepatic biliary duct dilatation. Pancreas: Normal. No ductal dilation. Spleen: Normal. No splenomegaly. Adrenal glands: Normal. No mass. Kidneys and ureters: Normal. No hydronephrosis. Stomach and bowel: Moderate diverticulosis coli. 2 cm duodenal diverticulum. The pelvic masses displaced bowel loops with loss of fat planes in the pelvis. Appendix: No evidence of appendicitis. Intraperitoneal space: Correlate for any right upper quadrant symptoms with consideration for ultrasound or HIDA. Multiple masses in the pelvis, substantially increased in size since the prior study, largest along the right anterior lower abdomen measuring 14 cm, previously 7.8 cm. Deep left pelvic mass increased in size measuring 8.8 cm. Additional, larger mass at the S2 level measuring 8.7 cm, previously 5.6 cm. Recommend surgical consultation. Trace free fluid. Vasculature: Unremarkable. No abdominal aortic aneurysm. Lymph nodes: Unremarkable. No enlarged lymph nodes. Urinary bladder: Unremarkable as visualized. Reproductive: Unremarkable as visualized. Bones/joints: Mild lumbar spondylosis. Soft tissues: Unremarkable. IMPRESSION: 1. Gallbladder distension, possible wall thickening without radiopaque stones. Mild intrahepatic biliary duct dilatation. Correlate for any right upper quadrant symptoms with consideration for ultrasound or HIDA. 2. Numerous enlarging pelvic masses, largest measures 14 cm. Recommend surgical consultation. Malignancy until proven otherwise. 3. Moderate diverticulosis coli. 4. Trace free fluid. Electronically signed by: Jim Baldwin On 01/04/2021 06:35:01 AM
--- NOTE | 2021-01-04 09:26 | REP ---
INDICATION: ascending cholangitis. COMPARISON: None. TECHNIQUE: Real-time sonographic evaluation of right upper quadrant performed. FINDINGS: There is sludge and multiple stones in the gallbladder. Gallbladder wall is thickened up to 5 mm. The patient is tender at the site of the gallbladder.. The common bile duct is mildly dilated 9 mm in diameter. There is very mild intrahepatic biliary dilatation. The liver demonstrates homogeneous echotexture with no gross mass. Pancreas is not well seen due to overlying bowel gas. The right kidney demonstrates no hydronephrosis, with a normal size of 11.9 cm in length. There is not significant hydronephrosis.No free fluid is seen. IMPRESSION: Sludge and multiple stones in the gallbladder. The gallbladder wall thickening, the patient is tender at the site of the gallbladder. The findings are suspicious for cholecystitis. Addition there is mild biliary dilatation. <Electronically signed by Ortiz Barron > 01/04/21 [id number]
--- NOTE | 2021-01-04 10:13 | CR.PDOC ---
General Surgery Consultation Date of Consultation 01/04/21 History and Physical CONSULT REPORT FOR: emergency room physician (Dr. Salmeron) REASON FOR CONSULTATION: abdominal pain, sepsis HISTORY OF PRESENT ILLNESS: Patient is a 70-year-old female brought in by EMS at approximately 3:56 AM after patient fell while going to the bathroom this morning. When EMS came they describe her as having some increased breathing, temperature of 102.5. Stable blood pressure 112/68 95% saturations at 4 L nasal cannula. She was reported to have been having nausea and vomiting for 3 days. She is complaining of back pain from the fall. Her trauma work-up has been negative for any injuries. She was noted to be tender over the right upper quadrant area. She has mild leukocytosis at 11.5 thousand but significant lactic acidosis of 9.3 which resp onded to IV fluid hydration. She has significantly abnormal LFTs and abnormal findings with regards to the gallbladder and biliary tree on imaging studies and thus I was asked to evaluate the patient. PAST MEDICAL HISTORY: 1. Hypertension 2. diabetes. 3. 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 Total abdominal hysterectomy 2. Umbilical hernia repair 3. Colonoscopy PREVIOUS ANESTHESIA REACTIONS: ALLERGIES: Please see below. HOME MEDICATIONS: Please see below. REVIEW OF SYSTEMS: Patient denies any ongoing weight loss. Was feeling weak from nausea vomiting abdominal pain for the past 3 or so days, has not been able to hold things down. Denies diarrhea. Denies any sick contacts. Denies dysuria, hematuria. PHYSICAL EXAMINATION: VITALS SIGNS: Please see below. GENERAL APPEARANCE: Sick looking, uncomfortable. SKIN: Warm dry, pale but not noticeably jaundiced HEENT: Normocephalic, sclerae not grossly icteric. NECK: Short supple. LUNGS: [Clear to auscultation bilaterally. No wheezing appreciated]. HEART: [No chest wall abnormalities. Regular rate and rhythm with no murmurs appreciated]. ABDOMEN: Abdomen is moderately obese soft, mildly distended. She has a lower midline incision and a separate supraumbilical incision. No gross herniation second appreciate. She is tender over the right upper quadrant area and epigastric area with mild guarding on palpation.. EXTREMITIES: No significant edema ANCILLARIES: . LABORATORY DATA: Please see below. IMAGING STUDIES: CT abdomen and pelvis as well as gallbladder ultrasound was performed. Distended gallbladder with mildly thickened wall. Mildly dilated common bile duct at 9 mm, mild dilation of the intrahepatic ducts. IMPRESSION AND PLAN: Patient most likely have ascending cholangitis given her presentation, prominence of fever, abdominal pain and significant transaminitis and elevated direct fraction for bilirubin. She does have evidence of mild biliary dilatation. Common bile duct is only 9 mm. She has been given IV fluid hydration which has helped reverse the lactic acidosis. Repeat lactate is down to normal from a highly elevated 9.3. She needs an emergent ERCP after adequate fluid resuscitation and starting her on antibiotics. Unfortunately we do not have any GI available in our institution at the moment. Dr. Salmeron has tried to call several institutions to transfer out, possibly may be able to transfer out to [place] according to him. He also has reached out to Dr. Wesley from interventional radiology from possibly doing a PTC though the intrahepatic ducts are not terribly dilated and the common bile duct is only 9 mm so the chances of success may be low. If this stings or not possible she may need an emergent open common bile duct exploration which will be the most invasive and probably most risk of [place] options available to her. I have reached out to Dr. Puckett to be aware of her. He will be on-call over the weekend. He cannot transfer the patient out and PTC is not available then he may need to assume care in the bring him to the operating room for open common bile duct exploration.. Vital Signs Vital Signs Date Time Temp Pulse Resp B/P (MAP) Pulse Ox O2 Delivery O2 Flow Rate FiO2 01/04/21 09:00 100 106/58 (74) 94 01/04/21 06:15 98.5 01/04/21 06:09 35 Room Air I&Os I&O- Last 24 Hours up to 6 AM 01/04/21 05:59 Intake Total 20 ml Balance 20 ml Laboratory Data Labs 24H Laboratory Tests 2 01/04/21 04:07: Bedside Glucose (Misc Panel) 364H 01/04/21 04:18: Immature Granulocyte % (Auto) 1.2, Neutrophils (%) (Auto) 93.9H, Lymphocytes (%) (Auto) 1.2L, Monocytes (%) (Auto) 3.3, Eosinophils (%) (Auto) 0.2, Basophils (%) (Auto) 0.2, Neutrophils # (Auto) 10.8H, Lymphocytes # (Auto) 0.1L, Monocytes # ( Auto) 0.4, Eosinophils # (Auto) 0.0, Basophils # (Auto) 0.0, Nucleated Red Blood Cells % (auto) 0.2H, Prothrombin Time 14.7H, Prothromb Time International Ratio 1.11, Activated Partial Thromboplast Time 30.4, Blood Gas Bicarbonate Standard 18.5, Venous Blood pH 7.380, Venous Blood Partial Pressure CO2 29.1L, Venous Blood Partial Pressure O2 60.8H, Venous Blood Total Carbon Dioxide 17.7L, Venous Blood HCO3 16.8L, Venous Blood Oxygen Saturation 89.7H, Venous Blood Base Excess -7.1L, Anion Gap 17H, Glomerular Filtration Rate 30.6L, Lactic Acid Level 9.3*H, Calcium Level 9.0, Total Bilirubin 2.4H, Direct Bilirubin 2.1H, Aspartate Amino Transf (AST/SGOT) 3776H, Alanine Aminotransferase (ALT/SGPT) 2339H, Alkaline Phosphatase 927H, Total Creatine Kinase 99, Creatine Kinase MB < 1.0, Creatine Kinase MB Relative Index 1.01, Troponin I 0.07, C-Reactive Protein, Quantitative 8.49H, Total Protein 5.4L, Albumin 2.5L, Albumin/Globulin Ratio 0.9L, Amylase Level 38, Lipase 111, Coronavirus (COVID-19)(PCR) NEGATIVE, Influenza Type A (RT-PCR) NEGATIVE, Influenza Type B (RT-PCR) NEGATIVE, Respiratory Syncytial Virus (PCR) NEGATIVE 01/04/21 04:46: Urine Color ALVINO, Urine Appearance CLOUDYH, Urine pH 5.0, Urine Specific [place] 1.016, Urine Protein 2+H, Urine Glucose (Auto)(UA) 1+H, Urine Ketones (Auto) TRACEH, Urine Blood 1+H, Urine Nitrite NEGATIVE, Urine Bilirubin 1+H, Urine Urobilinogen 4.0H, Urine Leukocyte Esterase (Auto) NEGATIVE, Urine WBC (Auto) 4H, Urine RBC (Auto) 3, Urine Hyaline Casts (Auto) 0, Urine Bacteria (Auto) 1+H, Urine Squamous Epithelial Cells 5, Urine Transitional Epithelial Cells 1, Urine Amorphous Sediment (Auto) SMALLH, Urine Granular Casts (Auto) 17, Urine Mucus (Auto) SMALL, Urine Sperm (Auto) 01/04/21 04:54: POC Glucose (Misc Panel) 357H, POC Sodium (Misc Panel) 140, POC Potassium (Misc Panel) 3.1L, POC Chloride (Misc Panel) 104, POC Total CO2 (Misc Panel) 14.0L, POC Blood Urea Nitrogen (Misc Panel 22, POC Ionized Calcium (Misc Panel) 4.5, POC Creatinine (Misc Panel) 1.2, POC Hematocrit (Misc Panel) 63.0H 01/04/21 08:27: Lactic Acid Followup at 4 Hours 1.7 CBC/BMP Laboratory Tests 01/04/21 04:18 Microbiology Microbiology 01/04/21 Urine Culture, Received Pending 01/04/21 Blood Culture, Received Pending 01/04/21 Blood Culture, Received Pending Home Medications Scheduled Acetaminophen (Acetaminophen) 500 Mg Tablet, 1,000 MG PO Q6H, (Reported) Atorvastatin Calcium (Lipitor) 10 Mg Tab, 10 MG PO DAILY, (Reported) Cetirizine HCl/Pseudoephedrine (Zyrtec-D Tablet) 1 Each Tab.er.12h, 1 TAB PO DAILY, (Reported) Duloxetine Hcl (Cymbalta) 60 Mg Capsule.dr, 60 MG PO DAILY, (Reported) Ergocalciferol (Vitamin D2) (Vitamin D2) 50,000 Units Cap, weekly on Thursday, (Reported) Ferrous Sulfate (Ferrous Sulfate) 325 Mg Tab, 325 MG PO QHS, (Reported) Folic Acid (Folic Acid) 1 Mg Tab, 1 MG PO QHS, (Reported) Glimepiride (Glimepiride) 2 Mg Tablet, 2 MG PO DAILY, (Reported) Hydrochlorothiazide (Hydrochlorothiazide) 12.5 Mg Tablet, 12.5 MG PO DAILY, (Reported) Letrozole (Letrozole) 2.5 Mg Tablet, 5 MG PO DAILY, (Reported) Medroxyprogesterone Acetate (Medroxyprogesterone Acetate) 10 Mg Tablet, 20 MG PO DAILY, (Reported) Metoprolol Succinate (Metoprolol Succinate) 50 Mg Tab.er.24h, 50 MG PO QHS, (Reported) Mirabegron (Myrbetriq) 25 Mg Tab, 25 MG PO QHS, (Reported) Montelukast Sodium (Montelukast Sodium) 10 Mg Tablet, 10 MG PO QHS, (Reported) Multivit-Min/FA/Lycopen/Lutein (Centrum Silver Tablet) 1 Each Tablet, 1 TAB PO DAILY, (Reported) Sitagliptin Phos/Metformin HCl (Janumet 50-1,000 mg Tablet) 1 Tab Tab, 1 TAB PO BID, (Reported) Turmeric (Curcumin) 1 Gm Powder, 450 MG PO BID, (Reported) Zonisamide (Zonisamide) 100 Mg Cap, 100 MG PO DAILY, (Reported) Zonisamide (Zonisamide) 100 Mg Cap, 200 MG PO QHS, (Reported) Allergies Coded Allergies: Sulfa (Sulfonamide Antibiotics) (Verified Allergy, Intermediate, hives, 06/05/20) diltiazem (Verified Allergy, Intermediate, hives, 06/05/20) magnesium oxide (Verified Allergy, Intermediate, hives, 06/05/20) nateglinide (Verified Allergy, Intermediate, hives, 06/05/20) JAY WILCOX MD Jan 04, 2021 10:13
[2021-01-04 10:45] VITALS: BP 100/59
== END 2021-01-04 11:21 | disposition short-term general hospital (02) ==
LOC: M ED 03:56
DX: K83.09 Other cholangitis (principal); R00.0 Tachycardia, unspecified; R19.09 Other intra-abdominal and pelvic swelling, mass and lump; K57.30 Diverticulosis of large intestine without perforation or abscess without bleeding; K80.20 Calculus of gallbladder without cholecystitis without obstruction; H74.8X2 Other specified disorders of left middle ear and mastoid; I45.10 Unspecified right bundle-branch block; I10 Essential (primary) hypertension; E78.5 Hyperlipidemia, unspecified; Z88.2 Allergy status to sulfonamides; Z88.8 Allergy status to other drugs, medicaments and biological substances; Z79.899 Other long term (current) drug therapy
CPT/HCPCS: 70450; 71045; 71275; 72125; 74177; 76705; 80047; 80048; 80076; 81001; 82150; 82550; 82553; 82803; 83605; 83690; 84484; 85025; 85610; 85730; 86140; 86850; 86900; 86901; 87040; 87077; 87086; 87186; 87631; 93005; 93041; 96361; 96365; 96375; 99285; J2270; J2405; J2543; Q9967